=== PATIENT | female | born 1995 | race Caucasian/White ===

== ENCOUNTER 2019-01-09 17:10 | Emergency (ER) | payer OTHER, BC ==
[~2019-01-09] VITALS: Ht 175 cm; Wt 144.6 kg
--- NOTE | 2019-01-09 17:55 | NUR ---
TO ROOM NO CHANGE FROM TRIAGE.
[2019-01-09] MEDS ORDERED: FAMOTIDINE 20 MG (PEPCID) TABLET PO STA (18:04)
[2019-01-09] MEDS ORDERED: LACTATED RINGERS 1,000 ML IV ONE (18:04)
--- NOTE | 2019-01-09 18:14 | ED Abdominal Pain ---
General Chief Complaint: Abdominal/GI Problems Stated Complaint: CONSTIPATION,VOMITING, FEVER Nursing Triage Note: DAVON STATES THAT SHE HAS BEEN BEEN CONSTIPATED SINCE . SHE IS 14 WEEKS . SHE HAS ALSO BEEN HAVING NAUSEA AND VOMITING AND FEVER OF 101.5. Sepsis Screen: No Definite Risk Source of Information: Patient, Other (BF) Exam Limitations: No Limitations History of Present Illness Date Seen by Provider: Jan 09, 2019 Time Seen by Provider: 17:55 Initial Comments Patient presents ER by private conveyance from Dr. Hayes office with chief complaint she has not had a bowel movement since , approximate 6 days ago. For the past 3-4 days she's been having nausea with vomiting and yesterday she started expressing fever with a MAXIMUM TEMPERATURE of 101.5. She went to her OB provider Dr. Arvizu and was given three quarters of a liter fluid and Zofran before being sent to the ER for further evaluation. She has no history of abdominal trauma, surgery or other medical problems besides hypertension for which she is usually on lisinopril but she was switched to the labetalol for the . She is a G1 at 14 weeks 2 days. The Zofran did help . She has no other medical allergies. She quit smoking about a month ago and does not use alcohol or recreational drugs. She's having no dysuria or blood in the vomitus. She has some upper abdominal pain associated with the vomiting. She has not tried anything for the pain. Allergies and Home Medications Allergies Coded Allergies: No Known Drug Allergies (Unverified , 01/09/19) Patient Home Medication List Home Medication List Reviewed: Yes Review of Systems Review of Systems Constitutional: No chills, No diaphoresis EENTM: No Blurred Vision, No Double Vision Respiratory: Denies Cough, Denies Shortness of Air Cardiovascular: Denies Chest Pain, Denies Edema Gastrointestinal: Denies Abdomen Distended; Abdominal Pain, Constipated; Denies Diarrhea; Nausea, Poor Appetite, Poor Fluid Intake, Vomiting Genitourinary: Denies Burning, Denies Discharge Musculoskeletal: No back pain, No joint pain Skin: No pruritus, No rash Psychiatric/Neurological: Denies Headache, Denies Numbness Past Xrejdlj-Sknytg-Vecpfv Hx Patient Social History Alcohol Use: Denies Use Recreational Drug Use: No Smoking Status: Former Smoker 2nd Hand Smoke Exposure: Yes Recent Foreign Travel: No Contact w/Someone Who Travel: No Recent Infectious Disease Expo: No Recent Hopitalizations: No Seasonal Allergies Seasonal Allergies: No Past Medical History Surgeries: No Respiratory: No Cardiac: Yes Hypertension Genitourinary: No Gastrointestinal: No Musculoskeletal: No Endocrine: No HEENT: No Cancer: No Psychosocial: No Integumentary: No Blood Disorders: No Physical Exam Vital Signs Vital Signs - First Documented 01/09/19 17:22 Temp 36.7 Pulse 95 Resp 16 B/P (MAP) 139/83 (101) Pulse Ox 99 Capillary Refill : Less Than 3 Seconds Height/Weight/BMI Height: '" Weight: lbs. oz. kg; 47.00 BMI Method: General Appearance: WD/WN, no apparent distress HEENT: PERRL/EOMI, normal ENT inspection, TMs normal, pharynx normal Neck: full range of motion, normal inspection Respiratory: lungs clear, normal breath sounds, no respiratory distress, no accessory muscle use Cardiovascular: normal peripheral pulses, regular rate, rhythm Gastrointestinal: normal bowel sounds, non tender, soft Extremities: normal range of motion, normal inspection, normal capillary refill Neurologic/Psychiatric: alert, normal mood/affect, oriented x 3 Skin: normal color, warm/dry Progress/Results/Core Measures Results/Orders Lab Results Laboratory Tests Test 01/09/19 18:40 Range/Units White Blood Count 8.9 4.3-11.0 10^3/uL Red Blood Count 4.14 L 4.35-5.85 10^6/uL Hemoglobin 11.4 L 11.5-16.0 G/DL Hematocrit 34 L 35-52 % Mean Corpuscular Volume 81 80-99 FL Mean Corpuscular Hemoglobin 28 25-34 PG Mean Corpuscular Hemoglobin Concent 34 32-36 G/DL Red Cell Distribution Width 13.9 10.0-14.5 % Platelet Count 275 130-400 10^3/uL Mean Platelet Volume 10.9 H 7.4-10.4 FL Neutrophils (%) (Auto) 70 42-75 % Lymphocytes (%) (Auto) 23 12-44 % Monocytes (%) (Auto) 7 0-12 % Eosinophils (%) (Auto) 0 0-10 % Basophils (%) (Auto) 0 0-10 % Neutrophils # (Auto) 6.2 1.8-7.8 X 10^3 Lymphocytes # (Auto) 2.0 1.0-4.0 X 10^3 Monocytes # (Auto) 0.7 0.0-1.0 X 10^3 Eosinophils # (Auto) 0.0 0.0-0.3 10^3/uL Basophils # (Auto) 0.0 0.0-0.1 10^3/uL Sodium Level 136 135-145 MMOL/L Potassium Level 3.8 3.6-5.0 MMOL/L Chloride Level 106 98-107 MMOL/L Carbon Dioxide Level 18 L 21-32 MMOL/L Anion Gap 12 5-14 MMOL/L Blood Urea Nitrogen 4 L 7-18 MG/DL Creatinine 0.64 0.60-1.30 MG/DL Estimat Glomerular Filtration Rate > 60 BUN/Creatinine Ratio 6 Glucose Level 86 70-105 MG/DL Calcium Level 9.2 8.5-10.1 MG/DL Corrected Calcium 9.4 8.5-10.1 MG/DL Magnesium Level 1.9 1.6-2.4 MG/DL Total Bilirubin 0.3 0.1-1.0 MG/DL Aspartate Amino Transf (AST/SGOT) 19 5-34 U/L Alanine Aminotransferase (ALT/SGPT) 18 0-55 U/L Alkaline Phosphatase 56 40-136 U/L Total Protein 6.9 6.4-8.2 GM/DL Albumin 3.7 3.2-4.5 GM/DL Lipase 10 8-78 U/L My Orders Orders - DAMIAN ZELAYA Ed Iv/Invasive Line Start (01/09/19 18:04) Lactated Ringers (Lr 1000 Ml Iv Solution (01/09/19 18:04) Promethazine Injection (Phenergan Injec (01/09/19 18:15) Cbc With Automated Diff (01/09/19 18:04) Comprehensive Metabolic Panel (01/09/19 18:04) Lipase (01/09/19 18:04) Magnesium (01/09/19 18:04) Lidocaine 2% Viscous 15 Ml (Xylocaine Vi (01/09/19 18:15) Famotidine Tablet (Pepcid Tablet) (01/09/19 18:04) Antacid Suspension (Mylanta Suspension (01/09/19 18:15) Medications Given in ED Current Medications Medications Dose Ordered Sig/Salena Route Start Time Stop Time Status Last Admin Dose Admin Al Hydrox/Mg Hydrox/Simethicone 30 ml ONCE ONCE PO 01/09/19 18:15 01/09/19 18:16 DC 01/09/19 18:36 30 ML Lactated Ringer's 1,000 ml @ 0 mls/hr Q0M ONCE IV 01/09/19 18:04 01/09/19 18:06 DC 01/09/19 18:36 1,000 MLS/HR Lidocaine HCl 15 ml ONCE ONCE PO 01/09/19 18:15 01/09/19 18:16 DC 01/09/19 18:36 15 ML Promethazine HCl 25 mg ONCE ONCE IVP 01/09/19 18:15 01/09/19 18:16 DC 01/09/19 18:33 25 MG Vital Signs/I&O 01/09/19 17:22 Temp 36.7 Pulse 95 Resp 16 B/P (MAP) 139/83 (101) Pulse Ox 99 Blood Pressure Mean: 101 POS Progress Progress Note #1: Time: 18:14 Progress Note We'll start some IV fluids Phenergan a GI cocktail and labs looking for more serious trouble. She has a benign abdominal exam with good bowel sounds all 4 quadrants. Aseptic vital signs. Progress Note #2: Time: 19:21 Progress Note The GI cocktail did seem to make improvement in her pain to where she just barely feels a dull ache in her epigastric region. She still has a benign abdominal exam with aseptic vitals. Her labs are reassuring. She is about fpc through her fluid bolus which also contains or Phenergan. Her nausea is completely gone. Return to the Center home with some Zofran and instructions to clean out using MiraLAX and enemas. She already has MiraLAX from primary care. We'll also recommend some Pepcid for the next week. Departure Impression Primary Impression: Obstipation Additional Impression: Gastroenteritis Disposition: 01 HOME, SELF-CARE Condition: Stable Departure-Patient Inst. Decision time for Depature: 19:23 Referrals: DEENA ARVIZU MD (PCP/Family) Primary Care Physician Patient Instructions: Constipation, Adult (DC), [id number] Add. Discharge Instructions: Use the Zofran 1 tablet under the tongue every 6 hours as needed for nausea. Encourage lots of fluids. MiraLAX 1-4 times a day until you have results. Combine this with either a suppository or enema daily. Tylenol 1000 mg every 8 hours as needed for pain. Pepcid one capsule twice daily for the next week for stomach discomfort. Follow-up with the inspector canvas products as necessary. If you begin to have fevers, shortness of breath, intractable abdominal pain then please return to the nearest ER. All discharge instructions reviewed with patient and/or family. Voiced understanding. Scripts Ondansetron (Ondansetron Odt) 4 Mg Tab.rapdis 4 MG PO Q6H PRN for NAUSEA/VOMITING, #15 TAB 0 Refills Prov: DAMIAN ZELAYA 01/09/19 Famotidine (Pepcid) 20 Mg Tablet 20 MG PO BID for 7 Days, #14 TAB 0 Refills Prov: DAMIAN ZELAYA 01/09/19 Work/School Note: Work Release Form Date Seen in the Emergency Department: Jan 09, 2019 Return to Work: Jan 12, 2019 Restrictions: No Restrictions DAMIAN ZELAYA Jan 09, 2019 18:14 POS
[2019-01-09] MEDS ORDERED: PROMETHAZINE INJ 25 MG/ML (PHENERGAN) AMP IVP ONE (18:15)
[2019-01-09] MEDS ORDERED: ANTACID SUSP 30 ML UDC (MYLANTA) PO ONE (18:15)
[2019-01-09] MEDS ORDERED: LIDOCAINE 2% VISCOUS 15 ML UDC PO ONE (18:15)
[2019-01-09 18:47] LABS: BASOPHILS % (AUTO) 0 % (0-10); EOSINOPHILS % (AUTO) 0 % (0-10); HEMATOCRIT 34 % (35-52); HEMOGLOBIN 11.4 G/DL (11.5-16.0); LYMPHOCYTES % (AUTO) 23 % (12-44); MEAN CORPUSCULAR HEMOGLOBIN 28 PG (25-34); MEAN CORPUSCULAR HGB CONC 34 G/DL (32-36); MEAN CORPUSCULAR VOLUME 81 FL (80-99); MEAN PLATELET VOLUME 10.9 FL (7.4-10.4); MONOCYTES # (AUTO) 0.7 X 10^3 (0.0-1.0); MONOCYTES % (AUTO) 7 % (0-12); NEUTROPHILS # (AUTO) 6.2 X 10^3 (1.8-7.8); NEUTROPHILS % (AUTO) 70 % (42-75); PLATELET COUNT 275 10^3/uL (130-400); RED CELL DISTRIBUTION WIDTH 13.9 % (10.0-14.5); WHITE BLOOD COUNT 8.9 10^3/uL (4.3-11.0)
[2019-01-09 19:08] LABS: ALANINE AMINOTRANSFERASE 18 U/L (0-55); ALBUMIN 3.7 GM/DL (3.2-4.5); ALKALINE PHOSPHATASE 56 U/L (40-136); BILIRUBIN,TOTAL 0.3 MG/DL (0.1-1.0); BUN/CREATININE RATIO 6; CALCIUM 9.2 MG/DL (8.5-10.1); CARBON DIOXIDE 18 MMOL/L (21-32); CHLORIDE 106 MMOL/L (98-107); CREATININE SERUM 0.64 MG/DL (0.60-1.30); GFR ESTIMATED > 60; GLUCOSE 86 MG/DL (70-105); LIPASE 10 U/L (8-78); MAGNESIUM 1.9 MG/DL (1.6-2.4); POTASSIUM 3.8 MMOL/L (3.6-5.0); SODIUM 136 MMOL/L (135-145); TOTAL PROTEIN 6.9 GM/DL (6.4-8.2)
[2019-01-09] MEDS ORDERED: ONDA4TAB11 PO (19:25)
[2019-01-09] MEDS ORDERED: FAMO-119 PO (19:25)
[2019-01-09 19:33] VITALS: BP 139/83
--- OUTSIDE RECORDS SUMMARY | 2019-02-04 15:59 | XMS REPORT ---
Author Author Debby SLOAN [facility] Address [address] [place] [address] Care Team Providers Care Life Coach Name Role Phone GERTRUDIS SLOAN Unavailable PROBLEMS Type Condition ICD9-CM Code [id number] Code Onset Dates Condition S tatus SNOMED Code Problem Pure hypercholesterolemia E78.00 Acti ve 171798604 Problem Hyperinsulinemia E16.1 Active 834 06565 Problem Depressive disorder F32.9 Active 49473650 Problem Dysthymia F34.1 Active 12095244 ALLERGIES No Known Allergies ENCOUNTERS Encounter Location Date Diagnosis [place] [address] [phone] Jul, Hyperinsulinemia E16.1 and P ure hypercholesterolemia E78.00 [facility] [address] [phone] June, Encounter for immunization Z 23 [place] [address] [phone] 24 Jun, 2018 [facility] [address] [place] [id number] [place] [id number] 28 Apr, 2018 Caries K02.9 ; Periodontitis K05.30 and Dental examination Z01.20 [facility] [address] [phone] Apr, Hyperinsulinemia E16.1 and P ure hypercholesterolemia E78.00 [place] [address] [address] Apr, Hirsutism L68.0 [place] [address] [address] Apr, Morbid obesity E66.01 ; Dyst hymia F34.1 ; Pre-conception counseling Z31.69 ; Weight loss counseling, encounter for Z71.3 and Hirsutism L68.0 [facility] [address] [facility] [id number] [address] [place] [phone] 20 Mar, 2018 [facility] [address] [id number] [address] [place] [id number] 15 Mar, 2018 Dental examination Z01.20 an d Caries K02.9 [facility] [address] [id number] [address] [place] [phone] 14 Mar, 2018 Dental abscess K04.7 [place] [address] [facility] [id number] [address] [place] [phone] 14 Mar, 2018 Dental examination Z01.20 [place] [address] [facility] [id number] [address] [place] [phone] 18 Feb, 2018 [facility] [address] [facility] [id number] [address] [place] [phone] Nov, Viral upper respiratory trac t infection J06.9 and BMI 40.0-44.9, adult Z68.41 [facility] [address] [facility] [id number] [address] [place] [phone] 18 Nov, 2017 [place] [id number] [facility] [id number] [address] [place] [phone] Oct, Encounter for immunization Z 23 IMMUNIZATIONS No Known Immunizations SOCIAL HISTORY Never Assessed REASON FOR VISIT est care, would like to discuss weight loss medication - ISABEL Pyle PLAN OF CARE Activity Details Follow Up 4 Weeks Reason:wt check VITAL SIGNS Height 70 in 2018-04-16 Weight 320.4 lbs 2018-04-16 Temperature 98.1 degrees Fahrenheit 2018-04-16 Heart Rate 98 bpm 2018-04-16 Respiratory Rate 18 2018-04-16 Oximetry 100 % 2018-04-16 BMI 45.97 kg/m2 2018-04-16 Blood pressure systolic 142 mmHg 2018-04-16 Blood pressure diastolic 78 mmHg 2018-04-16 MEDICATIONS Medication Instructions Dosage Frequency Start Date End Date Duration S funmi Sertraline HCl 50 mg Orally Once a day 1 tablet 24h Apr, 30 day(s) Active Phentermine HCl 37.5 mg Orally Once a day 1 tablet 24h Apr, 28 days Active RESULTS No Results PROCEDURES Procedure Date Ordered Result Body Site COMPLETE CBC W/AUTO DIFF WBC April 16, 2018 VENIPUNCT, ROUTINE* April 16, 2018 LIPID PANEL April 16, 2018 COMPREHEN METABOLIC PANEL April 16, 2018 ASSAY OF INSULIN April 16, 2018 GONADOTROPIN (LH) April 16, 2018 GONADOTROPIN (FSH) April 16, 2018 ASSAY OF ESTRADIOL April 16, 2018 ASSAY OF FREE THYROXINE April 16, 2018 ASSAY THYROID STIM HORMONE April 16, 2018 INSTRUCTIONS MEDICATIONS ADMINISTERED No Known Medications MEDICAL (GENERAL) HISTORY Type Description Date Medical History Herpes zoster without complication Surgical History tubes in ears as a child Surgical History adenoids removed Hospitalization History Pneumonia 2003
--- OUTSIDE RECORDS SUMMARY | 2019-02-04 15:59 | XMS REPORT | Continuity of Care Document ---
Author Organization Unknown Address Unknown Phone Unavailable Allergies Active Description Code Type Severity Reaction Onset Reported/Identified Relationship to Patient Clinical Status Yes No Known Drug Allergies [id number] Drug Allergy Unknown N/A 01/09/2019 Medications There is no data. Problems Date Dx Coded Attending Type Code Diagnosis Diagnosed By 01/14/2019 DAMIAN ZELAYA MD Ot K52. 9 NONINFECTIVE GASTROENTERITIS AND COLITIS 01/14/2019 DAMIAN ZELAYA MD Ot K59. 00 CONSTIPATION, UNSPECIFIED 01/14/2019 DAMIAN ZELAYA MD Ot O16. 1 UNSPECIFIED MATERNAL HYPERTENSION, FIRST 01/14/2019 DAMIAN ZELAYA MD Ot O99.612 DISEASES OF THE DGSTV SYS COMP 01/14/2019 DAMIAN ZELAYA MD Ot R50. 9 FEVER, UNSPECIFIED 01/14/2019 DAMIAN ZELAYA MD Ot Z3A. 14 14 WEEKS GESTATION OF 01/14/2019 DAMIAN ZELAYA MD Ot Z77. 22 CNTCT W AND EXPSR TO ENVIRON TOBACCO SMO 01/14/2019 DAMIAN ZELAYA MD Ot Z87.891 PERSONAL HISTORY OF NICOTINE DEPENDENCE Procedures There is no data. Results Test Result Range ESTRADIOL - 04/16/18 09:24 ESTRADIOL 81 pg/mL NRG FSH, SERUM - 04/16/18 09:24 FSH 4.4 mIU/mL NRG LH - 04/16/18 09:24 LH 5.1 mIU/mL NRG INSULIN LEVEL - 04/16/18 09:24 INSULIN 24.0 uIU/mL 2.0-19.6 TESTOSTERONE, TOTAL (WOMEN, CHILDREN, HY POGONADAL MALES) - 04/25/18 10:45 TESTOSTERONE, TOTAL, LC/MS/MS 15 ng/dL 2-45 FREE TESTOSTERONE 2.6 pg/mL 0.1-6.4 LIPID PANEL - 07/25/18 09:05 CHOLESTEROL, TOTAL 200 mg/dL <200 HDL CHOLESTEROL 38 mg/dL >50 TRIGLYCERIDES 124 mg/dL <150 LDL-CHOLESTEROL 137 mg/dL (calc) NRG CHOL/HDLC RATIO 5.3 (calc) <5.0 NON HDL CHOLESTEROL 162 mg/dL (calc) <13 0 INSULIN LEVEL - 07/25/18 09:07 INSULIN 15.3 uIU/mL 2.0-19.6 TSH w/ FREE T4 - 11/02/18 08:24 TSH 2.06 mIU/L NRG T4, FREE 1.3 ng/dL 0.8-1.8 CMP - 11/02/18 08:24 GLUCOSE 99 mg/dL 65-99 UREA NITROGEN (BUN) 9 mg/dL 7-25 CREATININE 0.72 mg/dL 0.50-1.10 eGFR NON-AFR. ST LU[facility] 119 mL/min/1.73m2 > OR = 60 eGFR 138 mL/min/1.73m2 > OR = 60 BUN/CREATININE RATIO NOT APPLICABLE (calc) 6-22 SODIUM 136 mmol/L 135-146 POTASSIUM 4.5 mmol/L 3.5-5.3 CHLORIDE 104 mmol/L 98-110 CARBON DIOXIDE 24 mmol/L 20-32 CALCIUM 9.1 mg/dL 8.6-10.2 PROTEIN, TOTAL 6.9 g/dL 6.1-8.1 ALBUMIN 4.0 g/dL 3.6-5.1 GLOBULIN 2.9 g/dL (calc) 1.9-3.7 ALBUMIN/GLOBULIN RATIO 1.4 (calc) 1.0-2. 5 BILIRUBIN, TOTAL 0.3 mg/dL 0.2-1.2 ALKALINE PHOSPHATASE 62 U/L 33-115 AST 14 U/L 10-30 ALT 13 U/L 6-29 INSULIN LEVEL - 11/02/18 08:24 INSULIN 20.8 uIU/mL 2.0-19.6 ANTIBODY SCREEN - 11/14/18 14:40 ANTIBODY SCREEN, RBC W/REFL ID, TITER AND AG NO ANTIBODIES DETECTED NRG TSH - 11/14/18 14:40 TSH 1.81 mIU/L NRG RUBELLA IMMUNE STATUS - 11/14/18 14:40 RUBELLA ANTIBODY (IGG) 1.41 index NRG CULTURE, URINE - 11/14/18 14:40 CULTURE, URINE, ROUTINE SEE NOTE NRG SUREPATH PAP AND HPV mRNA E6/E7 - 14:40 CLINICAL INFORMATION: NRG LMP: NRG PREV. PAP: NRG PREV. BX: CX NRG SOURCE: Cervix NRG STATEMENT OF ADEQUACY: NRG INTERPRETATION/RESULT: NRG SENIOR WEB DEVELOPER: NRG HPV mRNA E6/E7, SUREPATH VIAL Not Detected NOT DETECTED REVIEW SENIOR WEB DEVELOPER: NRG COMMENT NRG URINE PROTEIN 24 HOUR - 11/20/18 08:20 PROTEIN, TOTAL, 24 HR UR 156 mg/24 h <15 0 QNATAL - 12/10/18 10:27 NUMBER OF FETUSES? 1 NRG ADVANCED MATERNAL AGE? NO NRG ABNORMAL ERENDIRA? NO NRG ABNORMAL US? NO NRG PERSONAL/FAM HISTORY? NO NRG INTERPRETATION TNP NRG Complete blood count (CBC) with automate d white blood cell (WBC) differential - 01/09/19 18:40 Blood leukocytes automated count (number/volume) 8.9 10*3/uL 4.3-11.0 Blood erythrocytes automated count (number/volume) 4.14 10*6/uL 4.35-5.85 Venous blood hemoglobin measurement (mass/volume) 11.4 g/dL 11.5-16.0 Blood hematocrit (volume fraction) 34 % 35-52 Automated erythrocyte mean corpuscular volume 81 [ foz_us] 80-99 Automated erythrocyte mean corpuscular h emoglobin (mass per erythrocyte) 28 pg 25-34 Automated erythrocyte mean corpuscular h emoglobin concentration measurement (mass/volume) 34 g/dL 32-36 Automated erythrocyte distribution width ratio 13. 9 % 10.0- 14.5 Automated blood platelet count (count/volume) 275 10*3/uL 130-400 Automated blood platelet mean volume measurement 10.9 [foz_us] 7.4-10.4 Automated blood neutrophils/100 leukocytes 70 % 42-75 Automated blood lymphocytes/100 leukocytes 23 % 12-44 Blood monocytes/100 leukocytes 7 % 0-12 Automated blood eosinophils/100 leukocytes 0 % 0-10 Automated blood basophils/100 leukocytes 0 % 0-10 Blood neutrophils automated count (number/volume) 6.2 10*3 1.8-7.8 Blood lymphocytes automated count (number/volume) 2.0 10*3 1.0-4.0 Blood monocytes automated count (number/volume) 0. 7 10*3 0.0-1.0 Automated eosinophil count 0.0 10*3/uL 0 .0-0.3 Automated blood basophil count (count/volume) 0.0 10*3/uL 0.0-0.1 Comprehensive metabolic panel - 01/09/19 18:40 Serum or plasma sodium measurement (moles/volume) 136 mmol/L 135-145 Serum or plasma potassium measurement (moles/volume) 3.8 mmol/L 3.6-5.0 Serum or plasma chloride measurement (moles/volume) 106 mmol/L 98-107 Carbon dioxide 18 mmol/L 21-32 Serum or plasma anion gap determination (moles/volume) 12 mmol/L 5-14 Serum or plasma urea nitrogen measurement (mass/volume ) 4 mg/dL 7-18 Serum or plasma creatinine measurement (mass/volume) 0.64 mg/dL 0.60-1.30 Serum or plasma urea nitrogen/creatinine mass ratio 6 NRG Serum or plasma creatinine measurement w ith calculation of estimated glomerular filtration rate > NRG Serum or plasma glucose measurement (mass/volume) 86 mg/dL 70-105 Serum or plasma calcium measurement (mass/volume) 9.2 mg/dL 8.5-10.1 Serum or plasma total bilirubin measurement (mass/volu me) 0.3 mg/dL 0.1-1.0 Serum or plasma alkaline phosphatase brinda surement (enzymatic activity/volume) 56 U/L 40-136 Serum or plasma aspartate aminotransfera se measurement (enzymatic activity/volume) 19 U/L 5-34 Serum or plasma alanine aminotransferase measurement (enzymatic activity/volume) 18 U/L 0-55 Serum or plasma protein measurement (mass/volume) 6.9 g/dL 6.4-8.2 Serum or plasma albumin measurement (mass/volume) 3.7 g/dL 3.2-4.5 CALCIUM CORRECTED 9.4 mg/dL 8.5-10.1 Magnesium - 01/09/19 18:40 Magnesium 1.9 mg/dL 1.6-2.4 Lipase - 01/09/19 18:40 Lipase 10 U/L 8-78 PENTA SCREEN - 01/22/19 15:12 Maternal Weight 319 lbs NRG Est'd Date of Delivery 07/08/2019 NRG SHAMEKA Determined by ULTRASOUND NRG Mother's Ethnic Origin NRG Number of Fetuses 1 NRG Insulin Depend Diabetic NO NRG Repeat Specimen NO NRG Hx Of Neural Tube Defects NO NRG Prev Down Synd NO NRG Donor Egg NO NRG Donor Age: Egg Retrieval NOT GIVEN NRG Cigarette smoker NOT GIVEN NRG INTERPRETATION: SEE NOTE NRG Risk for ONTD <1:5000 NRG Age Risk Down Syndrome 1:1133 NRG ERENDIRA Down Syndrome Risk <1:5000 <1:270 ERENDIRA Trisomy 18 Risk <1:5000 <1:100 Calc'd Gestational Age 16.1 NRG AFP, Serum 25.8 ng/mL NRG AFP MoM 1.14 NRG hCG, Serum 11.4 IU/mL NRG hCG MoM 0.47 NRG Estriol, Free 0.67 ng/mL NRG Estriol MoM 1.04 NRG Inhibin A, Dimeric 87 pg/mL NRG Inhibin A MoM 0.67 NRG h-hCG, Serum 7.5 mcg/L NRG h-hCG MoM 0.37 NRG Date of 1995 NRG Collection Date 01/22/2019 NRG Encounters ACCT No. Visit Date/Time Discharge Status Pt. Type Provider Facility Loc./Unit Complaint [id number] 01/22/2019 13:20:00 01/22/2019 23:59: 59 CLS Outpatient GERTRUDIS SLOAN [facility] [id number] 01/22/2019 13:20:00 Document Registration [id number] 12/10/2018 09:00:00 Document Registration [id number] 11/20/2018 08:20:00 Document Registration [id number] 11/14/2018 13:20:00 Document Registration [id number] 11/02/2018 09:20:00 Document Registration [id number] 07/25/2018 09:00:00 Document Registration [id number] 04/25/2018 10:40:00 Document Registration [id number] 04/16/2018 08:20:00 Document Registration [id number] 01/09/2019 17:13:00 19:34:00 DIS Outpatient NATHALIE BAH, DAMIAN Rodriguez [facility] ER CONSTIPATION,VOMITING, FEVER
--- OUTSIDE RECORDS SUMMARY | 2019-02-04 15:59 | XMS REPORT ---
Author Author Debby SLOAN Organization [facility] Address [address] [place] [address] Care Team Providers Care Shoe Repairer Helper Name Role Phone GERTRUDIS SLOAN Unavailable PROBLEMS Unknown Problems ALLERGIES No Known Allergies ENCOUNTERS Encounter Location Date Diagnosis [facility] [address] [place] [id number] [address] [place] [phone] Nov, Viral upper respiratory trac t infection J06.9 and BMI 40.0-44.9, adult Z68.41 [facility] [address] [facility] [id number] [address] [place] [phone] Nov, [facility] [address] [facility] [id number] [address] [place] [phone] Oct, Encounter for immunization Z 23 IMMUNIZATIONS No Known Immunizations SOCIAL HISTORY Never Assessed REASON FOR VISIT Cold symptoms- Cough, congestion, cold sore on mouth, slight fever yesterday- Ulysses Diaz RN PLAN OF CARE Activity Details Follow Up as needed or reg fu with pc p Reason: VITAL SIGNS Height 70 in 2017-11-23 Weight 304.2 lbs 2017-11-23 Temperature 98.7 degrees Fahrenheit 2017-11-23 Heart Rate 82 bpm 2017-11-23 Respiratory Rate 22 2017-11-23 BMI 43.64 kg/m2 2017-11-23 Blood pressure systolic 128 mmHg 2017-11-23 Blood pressure diastolic 74 mmHg 2017-11-23 MEDICATIONS Medication Instructions Dosage Frequency Start Date End Date Duration S tatus Acyclovir 800 MG Orally Three times a day 1 tablet 8h Nov, 2 days Active Pseudoephedrine HCl ER 120 MG Orally every 12 hrs 1 tablet as neede d 12h Nov, 10 days Active Benzonatate 200 mg Orally Three times a day 1 capsule 8h Nov, Nov, 7 days Active RESULTS No Results PROCEDURES No Known procedures INSTRUCTIONS MEDICATIONS ADMINISTERED No Known Medications MEDICAL (GENERAL) HISTORY Type Description Date Medical History Herpes zoster without complication Surgical History No Surgical history information Hospitalization History Pneumonia 2003
== END 2019-01-09 19:34 | disposition home or self-care (01) ==
LOC: EDUNIT# 17:10 → ER 17:13
DX: O99.612 Diseases of the digestive system complicating pregnancy, second trimester (principal); K52.9 Noninfective gastroenteritis and colitis, unspecified; K59.00 Constipation, unspecified; O16.1 Unspecified maternal hypertension, first trimester; Z3A.14 14 weeks gestation of pregnancy; Z77.22 Contact with and (suspected) exposure to environmental tobacco smoke (acute) (chronic); Z87.891 Personal history of nicotine dependence
CPT/HCPCS: 36415; 80053; 83690; 83735; 85025; 96361; 96374

== ENCOUNTER 2019-05-17 10:30 | Outpatient (CLI) | payer OTHER, BC ==
[~2019-05-17] VITALS: Ht 175 cm; Wt 151.0 kg
[~2019-05-17 10:30] MED LIST: FAMO-119 PO; ONDA4TAB11 PO
--- NOTE | 2019-05-17 10:35 | NUR ---
LINDA BENAVIDES presented to unit via ambulatory from ED, with c/o HIGH BLOOD PRESSURE- sent from Dr Mcgraw's office. LINDA BENAVIDES weighed, gowned, voided, and to bed. EFHM and TOCO applied, VS taken. LINDA BENAVIDES oriented to bed controls, call light, TV, heat, and A/C controls.
[2019-05-17 11:00] VITALS: BP 138/65
[2019-05-17 11:15] LABS: HEMOGLOBIN 10.5 G/DL (11.5-16.0); MEAN PLATELET VOLUME 11.1 FL (7.4-10.4); RED CELL DISTRIBUTION WIDTH 14.1 % (10.0-14.5); WHITE BLOOD COUNT 13.9 10^3/uL (4.3-11.0)
[2019-05-17 11:19] LABS: ALBUMIN 3.4 GM/DL (3.2-4.5); CHLORIDE 106 MMOL/L (98-107); POTASSIUM 4.2 MMOL/L (3.6-5.0); SODIUM 135 MMOL/L (135-145)
[2019-05-17 11:20] LABS: CALCIUM 9.1 MG/DL (8.5-10.1)
[2019-05-17 11:22] LABS: GLUCOSE 88 MG/DL (70-105); TOTAL PROTEIN 6.7 GM/DL (6.4-8.2)
[2019-05-17 11:23] LABS: BILIRUBIN,TOTAL 0.1 MG/DL (0.1-1.0); CARBON DIOXIDE 18 MMOL/L (21-32)
[2019-05-17 11:25] LABS: ALKALINE PHOSPHATASE 79 U/L (40-136); CREATININE SERUM 0.66 MG/DL (0.60-1.30); GFR ESTIMATED > 60
[2019-05-17 11:26] LABS: BUN/CREATININE RATIO 11
[2019-05-17 11:28] LABS: ALANINE AMINOTRANSFERASE 7 U/L (0-55); URIC ACID 4.5 MG/DL (2.6-7.2)
--- NOTE | 2019-05-17 11:40 | NUR ---
This RN calls Dr Mcgraw with pt report. current BP, denies PreE s/s, lab results reported. Pt may eat lunch, BP hourly.
[2019-05-17 11:50] VITALS: BP 132/64
[2019-05-17 12:55] VITALS: BP 141/65
--- NOTE | 2019-05-17 13:04 | NUR ---
This RN gives update on pt report to Dr Mcgraw at this time. BPs read to Dr Mcgraw. Pt reports no s/s of Pre-E at this time. Dr Mcgraw says pt may DC to home now; wants pt to follow up on monday in clinic for BP check.
--- NOTE | 2019-05-20 08:36 | Physician Query-Final Dx ---
PAYTON JUAREZ 05/20/19 0836: Clinic Account Progress/Dx Physician Query: Please give diagnosis Please include # weeks gestation Date of Service May 17, 2019 at 10:30 DEENA ARVIZU MD 05/20/198: Clinic Account Progress/Dx DIAGNOSIS: Diagnosis Chronic hypertension with acute elevation and edema, negative labwork for preeclampsia, BP improved during observation period. 32 weeks gestation PAYTON JUAREZ May 20, 2019 08:36 DEENA ARVIZU MD May 20, 2019 20:48
== END 2019-05-17 13:23 | disposition home or self-care (01) ==
LOC: WSo 10:30 → LDRP 10:35 → WSo 13:23
PROVIDERS: ATTEND Family Medicine
DX: O16.3 Unspecified maternal hypertension, third trimester (principal); O12.03 Gestational edema, third trimester; Z3A.32 32 weeks gestation of pregnancy
CPT/HCPCS: 36415; 80053; 82570; 83615; 84156; 84550; 85027; 99213

== ENCOUNTER 2019-05-28 08:39 | Outpatient (CLI) | payer OTHER, BC ==
[2019-05-28] VITALS (9 sets, daily range): BP systolic 125–142; BP diastolic 58–68
[~2019-05-28] VITALS: Ht 175 cm; Wt 151.9 kg
--- NOTE | 2019-05-28 08:55 | NUR ---
LINDA BENAVIDES presented to unit via personal vehicle/amulatory from Dr Mcgraw's office, with c/o HIGH BP. LINDA BENAVIDES weighed, gowned, voided, and to bed. EFHM and TOCO applied, VS taken. LINDA BENAVIDES oriented to bed controls, call light, TV, heat, and A/C controls all by Krystin MENDENHALL.
[2019-05-28] MEDS ORDERED: BETAMETHASONE ACE/NA PHOS 6 MG/ML (CELESTONE SOLUSPAN) IM SCH (09:00)
[2019-05-28] MEDS ORDERED: LABETALOL HCL 20 MG/4 ML VIAL IV PRN (09:00)
[2019-05-28 09:30] LABS: BASOPHILS % (AUTO) 0 % (0-10); EOSINOPHILS # (AUTO) 0.1 10^3/uL (0.0-0.3); EOSINOPHILS % (AUTO) 1 % (0-10); HEMATOCRIT 31 % (35-52); HEMOGLOBIN 10.5 G/DL (11.5-16.0); LYMPHOCYTES # (AUTO) 1.9 X 10^3 (1.0-4.0); LYMPHOCYTES % (AUTO) 16 % (12-44); MEAN CORPUSCULAR HEMOGLOBIN 28 PG (25-34); MEAN CORPUSCULAR HGB CONC 33 G/DL (32-36); MEAN CORPUSCULAR VOLUME 82 FL (80-99); MEAN PLATELET VOLUME 11.1 FL (7.4-10.4); MONOCYTES # (AUTO) 0.6 X 10^3 (0.0-1.0); MONOCYTES % (AUTO) 5 % (0-12); NEUTROPHILS # (AUTO) 9.5 X 10^3 (1.8-7.8); NEUTROPHILS % (AUTO) 79 % (42-75); PLATELET COUNT 284 10^3/uL (130-400); RED CELL DISTRIBUTION WIDTH 14.6 % (10.0-14.5)
[2019-05-28 09:45] LABS: ALBUMIN 3.2 GM/DL (3.2-4.5); CHLORIDE 106 MMOL/L (98-107); POTASSIUM 4.1 MMOL/L (3.6-5.0); SODIUM 136 MMOL/L (135-145)
[2019-05-28 09:47] LABS: GLUCOSE 103 MG/DL (70-105); TOTAL PROTEIN 6.7 GM/DL (6.4-8.2)
[2019-05-28 09:49] LABS: BILIRUBIN,TOTAL 0.2 MG/DL (0.1-1.0); CARBON DIOXIDE 17 MMOL/L (21-32)
[2019-05-28 09:51] LABS: ALKALINE PHOSPHATASE 78 U/L (40-136); CREATININE SERUM 0.67 MG/DL (0.60-1.30); GFR ESTIMATED > 60
[2019-05-28 09:52] LABS: BUN/CREATININE RATIO 9
[2019-05-28 09:54] LABS: ALANINE AMINOTRANSFERASE 9 U/L (0-55); URIC ACID 5.1 MG/DL (2.6-7.2)
--- NOTE | 2019-05-28 10:00 | NUR ---
this RN receives report from Krystin MENDENHALL
--- NOTE | 2019-05-28 10:49 | Diagnostic Imaging Report ---
INDICATION: Maternal hypertension. TECHNIQUE: Multiple real-time grayscale images were obtained over the gravid uterus. COMPARISON: None FINDINGS: Limited imaging of the gravid uterus was performed. Biophysical profile was also performed and there is a score of 8/8 as the fetus was given a score of 2 for breathing movements, motion, tone and amniotic fluid. Fetus is in cephalic presentation. KANU measures 12.1 cm. Placenta is anterior in position without previa. Biometrical measurements are as follows: Biparietal 9.28 cm, age 37 weeks 6 days. Head circumference 33.33 cm, age 38 weeks 1 days. Abdominal circumference 31.83 cm, age 35 weeks 6 days. Femur length 6.92 cm, age 35 weeks 4 days. Sonographic estimate age: 36 weeks 6 days. Sonographic estimated date of delivery: 06/19/2019. Estimated Weight: 2861 gm (+/- 418 gm). LMP percentile: 93%. heart rate: 135 beats per minute. number: 1 of 1. IMPRESSION: 1. Normal biophysical profile. 2. Cephalic presentation with estimated gestational age of 36 weeks and 6 days. Dictated by: Dictated on workstation # [id number]
--- NOTE | 2019-05-28 10:51 | Diagnostic Imaging Report ---
PROCEDURE: US Hepatic (Liver). TECHNIQUE: Multiple real-time grayscale images were obtained over the right upper quadrant in various projections. INDICATION: Right upper quadrant abdominal pain, hypertension. COMPARISON: None. FINDINGS: The size and echogenicity liver appears normal. There is no mass or intrahepatic biliary duct dilatation. Portal venous flow is normal. Common bile duct, pancreas, aorta and IVC are obscured by bowel gas. The right kidney is normal. Several gallstones are present. Otherwise, gallbladder wall and lumen are unremarkable. There is no inflammation. IMPRESSION: 1. Normal-appearing liver. 2. Cholelithiasis without cholecystitis 3. Limited examination due to overlying bowel gas. No obvious ascites. Dictated by: Dictated on workstation # [id number]
--- NOTE | 2019-05-28 10:56 | NUR ---
This RN calls Dr Mcgraw with pt report. current BP's, pt CO headache (pt states she always has a headache but now is worse than usual), epigastric pain. +1 edema in legs/feet, +1 reflexes, lab results read. Report from US tech to RN: BPP 09/13, gal stones present, slightly enlarged liver, measuring large for gestational age at 37 weeks [address] some change[address] Dr Mcgraw states labs look okay but wants to continue to watch pt a little longer just in case BPs spike again (were high in office), RN will call back about [address] Mcgraw is placing order for TUMS to help alleviate epigastric pain.
[2019-05-28] MEDS ORDERED: CALCIUM CARBONATE 500 MG (TUMS) TAB.CHEW PO ONE (11:00)
[2019-05-28] MEDS ORDERED: CALCIUM CARBONATE 500 MG (TUMS) TAB.CHEW ONE (11:02)
--- NOTE | 2019-05-28 13:01 | NUR ---
Dr Cueto called by this RN. Latest BPs from last 2 hours. Pt states tums helped her epigastric pain slightly. pt co headache rating 3. pt has not taken anything for headache today. dr cueto states pt may have 1000mg tylenol for headache. Lans and BPs look good-Pt may dc to home if she feels comfortable with that. Do not return to work for the remaining of the week. Dr Cueto wants to see her again in office at the end of this week.
[2019-05-28] MEDS ORDERED: ACETAMINOPHEN 500 MG TAB (TYLENOL) ONE (13:03)
[2019-05-28] MEDS ORDERED: ACETAMINOPHEN 500 MG TAB (TYLENOL) PO ONE (13:15)
--- NOTE | 2019-05-29 09:29 | Physician Query-Final Dx ---
PAYTON JUAREZ 05/29/19 0929: Clinic Account Progress/Dx Physician Query: Please give diagnosis Please include # weeks gestation Date of Service May 28, 2019 at 08:39 DEENA ARVIZU MD 05/29/19 1549: Clinic Account Progress/Dx DIAGNOSIS: Diagnosis Chronic hypertension complicating Headache 34 weeks gestation PAYTON JUAREZ May 29, 2019 09:29 DEENA ARVIZU MD May 29, 2019 15:49
== END 2019-05-28 13:15 | disposition home or self-care (01) ==
LOC: WSo 08:39 → LDRP 08:42 → WSo 13:15
PROVIDERS: ATTEND Family Medicine
DX: O16.9 Unspecified maternal hypertension, unspecified trimester (principal); Z3A.34 34 weeks gestation of pregnancy
CPT/HCPCS: 36415; 76705; 76805; 76819; 80053; 82570; 83615; 84156; 84550; 85025; 96372; 99213

== ENCOUNTER 2019-05-29 10:55 | Outpatient (CLI) | payer OTHER, BC ==
[~2019-05-29] VITALS: Ht 175 cm; Wt 151.3 kg
[2019-05-29 11:00] VITALS: BP 138/80
--- NOTE | 2019-05-29 11:00 | NUR ---
LINDA BENAVIDES presented to unit via ambulation from ED, for direct admit by Dr for elevated BP. Pt. weighed, gowned, voided, and to bed. EFHM and TOCO applied, VS taken. Pt. oriented to bed controls, call light, TV, heat, and A/C controls.
[2019-05-29 11:24] VITALS: BP 138/80
[2019-05-29] MEDS ORDERED: BETAMETHASONE ACE/NA PHOS 6 MG/ML (CELESTONE SOLUSPAN) IM SCH (11:45)
--- NOTE | 2019-05-29 11:50 | NUR ---
This RN calls Dr Mcgraw with pt report, current BP, pt CO headache not relieved by Tylenol, CO no other PreE SS. Orders received for labs and give second dose of betamethasone. RN will call Dr Mcgraw with updated pt report once labs are back.
[2019-05-29 12:00] VITALS: BP 122/65
[2019-05-29 12:14] LABS: BASOPHILS % (AUTO) 0 % (0-10); EOSINOPHILS % (AUTO) 0 % (0-10); HEMATOCRIT 31 % (35-52); HEMOGLOBIN 10.4 G/DL (11.5-16.0); LYMPHOCYTES % (AUTO) 19 % (12-44); MEAN CORPUSCULAR HEMOGLOBIN 27 PG (25-34); MEAN CORPUSCULAR HGB CONC 33 G/DL (32-36); MEAN CORPUSCULAR VOLUME 82 FL (80-99); MEAN PLATELET VOLUME 11.1 FL (7.4-10.4); MONOCYTES # (AUTO) 0.9 X 10^3 (0.0-1.0); MONOCYTES % (AUTO) 5 % (0-12); NEUTROPHILS % (AUTO) 75 % (42-75); PLATELET COUNT 290 10^3/uL (130-400); RED CELL DISTRIBUTION WIDTH 14.4 % (10.0-14.5); WHITE BLOOD COUNT 15.9 10^3/uL (4.3-11.0)
[2019-05-29 12:22] LABS: ALBUMIN 3.2 GM/DL (3.2-4.5); CHLORIDE 106 MMOL/L (98-107); POTASSIUM 3.9 MMOL/L (3.6-5.0); SODIUM 135 MMOL/L (135-145)
[2019-05-29 12:23] LABS: CALCIUM 9.1 MG/DL (8.5-10.1)
[2019-05-29 12:24] LABS: GLUCOSE 86 MG/DL (70-105); TOTAL PROTEIN 6.8 GM/DL (6.4-8.2)
[2019-05-29 12:25] LABS: CARBON DIOXIDE 17 MMOL/L (21-32)
[2019-05-29 12:26] LABS: BILIRUBIN,TOTAL 0.2 MG/DL (0.1-1.0)
[2019-05-29 12:27] VITALS: BP 138/80
[2019-05-29 12:27] LABS: BAND NEUTROPHILS 2 %; LYMPHOCYTES % (MANUAL) 20 %; METAMYELOCYTES % 1 %; MONOCYTES % (MANUAL) 3 %; NEUTROPHILS % (MANUAL) 74 %; RBC MORPH NORMAL
[2019-05-29 12:28] LABS: ALKALINE PHOSPHATASE 85 U/L (40-136); CREATININE SERUM 0.64 MG/DL (0.60-1.30); GFR ESTIMATED > 60
[2019-05-29 12:29] LABS: BUN/CREATININE RATIO 9
[2019-05-29 12:31] LABS: ALANINE AMINOTRANSFERASE 10 U/L (0-55)
--- NOTE | 2019-05-29 12:55 | NUR ---
Dr cueto called with pt report and lab results. current BP's. Dr Cueto okay with pt DC to home. Dr Cueto states she will consult EFM to see if there is anything more she needs to do with pt care sine she has persistent headache and will let pt know.
--- NOTE | 2019-05-30 08:22 | Physician Query-Final Dx ---
Clinic Account Progress/Dx Physician Query: Please give diagnosis Please include # weeks gestation Date of Service May 29, 2019 at 10:55 PAYTON JUAREZ May 30, 2019 08:22
== END 2019-05-29 13:05 | disposition home or self-care (01) ==
LOC: LDRP 10:55 → WSo 10:55
PROVIDERS: ATTEND Family Medicine
DX: O26.899 Other specified pregnancy related conditions, unspecified trimester (principal); Z3A.00 Weeks of gestation of pregnancy not specified
CPT/HCPCS: 36415; 80053; 82570; 83615; 84156; 84550; 85007; 85027; 96372; 99213

== ENCOUNTER 2019-06-18 18:27 | Inpatient (IN) | payer OTHER, BC ==
[2019-06-18] VITALS (7 sets, daily range): BP systolic 133–181; BP diastolic 63–97
[~2019-06-18] VITALS: Ht 175.3 cm; Wt 153.7 kg
[2019-06-18] MEDS ORDERED: LACTATED RINGERS 1,000 ML IV SCH (19:07)
[2019-06-18] MEDS ORDERED: D5 LR IV SOLUTION 1,000 ML IV ONE (19:39)
[2019-06-18] MEDS ORDERED: PREN-53 PO (19:42)
[2019-06-18] MEDS ORDERED: LABE100T6 PO (19:42)
[2019-06-18 20:11] LABS: BASOPHILS % (AUTO) 0 % (0-10); EOSINOPHILS % (AUTO) 0 % (0-10); HEMATOCRIT 34 % (35-52); HEMOGLOBIN 11.3 G/DL (11.5-16.0); LYMPHOCYTES # (AUTO) 2.2 X 10^3 (1.0-4.0); LYMPHOCYTES % (AUTO) 18 % (12-44); MEAN CORPUSCULAR HEMOGLOBIN 27 PG (25-34); MEAN CORPUSCULAR HGB CONC 33 G/DL (32-36); MEAN CORPUSCULAR VOLUME 81 FL (80-99); MEAN PLATELET VOLUME 11.8 FL (7.4-10.4); MONOCYTES # (AUTO) 0.7 X 10^3 (0.0-1.0); MONOCYTES % (AUTO) 6 % (0-12); NEUTROPHILS # (AUTO) 9.2 X 10^3 (1.8-7.8); NEUTROPHILS % (AUTO) 76 % (42-75); PLATELET COUNT 295 10^3/uL (130-400); RED CELL DISTRIBUTION WIDTH 14.6 % (10.0-14.5); WHITE BLOOD COUNT 12.1 10^3/uL (4.3-11.0)
[2019-06-18] MEDS: D5 LR IV SOLUTION 1,000 ML IV SCH (20:16)
[2019-06-18] MEDS ORDERED: WATER (STERILE) FOR INJECTION 20 ML ONE (20:30)
[2019-06-18] MEDS ORDERED: AMPICILLIN FOR IV USE 2,000 MG VIAL ONE (20:30)
--- OUTSIDE RECORDS SUMMARY | 2019-06-18 20:39 | XMS REPORT | Continuity of Care Document ---
Author Organization Unknown Address Unknown Phone Unavailable Allergies Active Description Code Type Severity Reaction Onset Reported/Identified Relationship to Patient Clinical Status Yes No Known Drug Allergies [id number] Drug Allergy Unknown N/A 01/09/2019 Medications There is no data. Problems Date Dx Coded Attending Type Code Diagnosis Diagnosed By 01/09/2019 DAMIAN ZELAYA MD Ot K52. 9 NONINFECTIVE GASTROENTERITIS AND COLITIS 01/09/2019 DAMIAN ZELAYA MD Ot K59. 00 CONSTIPATION, UNSPECIFIED 01/09/2019 DAMIAN ZELAYA MD Ot O16. 1 UNSPECIFIED MATERNAL HYPERTENSION, FIRST 01/09/2019 DAMIAN ZELAYA MD Ot O99.612 DISEASES OF THE DGSTV SYS COMP 01/09/2019 DAMIAN ZELAYA MD Ot R50. 9 FEVER, UNSPECIFIED 01/09/2019 DAMIAN ZELAYA MD Ot Z3A. 14 14 WEEKS GESTATION OF 01/09/2019 DAMIAN ZELAYA MD Ot Z77. 22 CNTCT W AND EXPSR TO ENVIRON TOBACCO SMO 01/09/2019 DAMIAN ZELAYA MD Ot Z87.891 PERSONAL HISTORY OF NICOTINE DEPENDENCE 01/14/2019 DAMIAN ZELAYA MD Ot K52. 9 [...] Ot Z87.891 PERSONAL HISTORY OF NICOTINE DEPENDENCE 05/17/2019 DEENA ARVIZU MD Ot O12.03 GESTATIONAL EDEMA, THIRD TRIMESTER 05/17/2019 DEENA ARVIZU MD Ot O16 .3 UNSPECIFIED MATERNAL HYPERTENSION, THIRD 05/17/2019 DEENA ARVIZU MD Ot Z3A.32 32 WEEKS GESTATION OF 05/21/2019 DEENA ARVIZU MD Ot O12.03 GESTATIONAL EDEMA, THIRD TRIMESTER 05/21/2019 DEENA ARVIZU MD Ot O16 .3 UNSPECIFIED MATERNAL HYPERTENSION, THIRD 05/21/2019 DEENA ARVIZU MD Ot Z3A.32 32 WEEKS GESTATION OF 05/30/2019 DEENA ARVIZU MD Ot O16 .9 UNSPECIFIED MATERNAL HYPERTENSION, UNSPE 05/30/2019 DEENA ARVIZU MD Ot Z3A.34 34 WEEKS GESTATION OF 05/31/2019 DEENA ARVIZU MD Ot O26.899 OT RELATED CONDITIONS, UNSPEC 05/31/2019 DEENA ARVIZU MD Ot Z3A.00 WEEKS OF GESTATION OF NOT SPEC 06/04/2019 DEENA ARVIZU MD Ot O26.899 OTSabiha RELATED CONDITIONS, UNSPEC 06/04/2019 DEENA ARVIZU MD Ot Z3A.00 WEEKS OF GESTATION OF NOT SPEC Procedures There is no data. Results Test [...] 7-25 CREATININE 0.72 mg/dL 0.50-1.10 eGFR NON-AFR. SUDANESE 119 mL/min/1.73m2 > OR = 60 eGFR [...] NRG STATEMENT OF ADEQUACY: NRG INTERPRETATION/RESULT: NRG SAFETY PROFESSIONAL: NRG HPV mRNA E6/E7, SUREPATH VIAL Not Detected NOT DETECTED REVIEW SAFETY PROFESSIONAL: NRG COMMENT NRG URINE PROTEIN 24 HOUR [...] of 1996 NRG Collection Date 01/22/2019 NRG CULTURE, GENITAL - 02/19/19 19:00 CULTURE, GENITAL SEE NOTE NRG LDH - 03/13/19 16:04 LD 116 U/L 100-200 URIC ACID, SERUM - 03/13/19 16:04 URIC ACID 5.0 mg/dL 2.5-7.0 GLUCOSE KIRSTY 1 HOUR - 04/05/19 14:58 GLUCOSE, POSTPRANDIAL/ 1 HOUR 141 mg/dL See Note: SYPHILIS (RPR W/ REFLEX CONFIRMATION) - 04/05/19 14:58 RPR (DX) W/REFL TITER AND CONFIRMATORY TESTING NON-REACTIVE NON-REACTIVE GLUCOSE KIRSTY 3 HOUR - 04/11/19 14:04 TIME 1 0830 NRG SPECIMEN 1 86 mg/dL 65-99 TIME 2 0930 NRG SPECIMEN 2 165 mg/dL NRG TIME 3 1030 NRG SPECIMEN 3 109 mg/dL NRG TIME 4 1130 NRG SPECIMEN 4 56 mg/dL NRG COMMENT NRG PROTEIN, TOTAL W/CREAT, RANDOM URINE - 0 05/01/19 14:34 CREATININE, RANDOM URINE 110 mg/dL 20-27 5 PROTEIN/CREATININE RATIO 127 mg/g creat 21-161 PROTEIN, TOTAL, RANDOM UR 14 mg/dL 5-24 Urine protein/creatinine mass ratio - 10:50 Urine protein measurement (mass/volume) 11 mg/dL 6-12 Urine creatinine measurement (mass/volume) 64 mg/d L 30-125 Urine protein/creatinine mass ratio 0.17 NRG Automated blood complete blood count (he mogram) panel - 05/17/19 10:55 Blood leukocytes automated count (number/volume) 13.9 10*3/uL 4.3-11.0 Blood erythrocytes automated count (number/volume) 3.86 10*6/uL 4.35-5.85 Venous blood hemoglobin measurement (mass/volume) 10.5 g/dL 11.5-16.0 Blood hematocrit (volume fraction) 32 % 35-52 Automated erythrocyte mean corpuscular volume 82 [ foz_us] 80-99 Automated erythrocyte mean corpuscular h emoglobin (mass per erythrocyte) 27 pg 25-34 Automated erythrocyte mean corpuscular h emoglobin concentration measurement (mass/volume) 33 g/dL 32-36 Automated erythrocyte distribution width ratio 14. 1 % 10.0- 14.5 Automated blood platelet count (count/volume) 281 10*3/uL 130-400 Automated blood platelet mean volume measurement 11.1 [foz_us] 7.4-10.4 Comprehensive metabolic panel - 05/17/19 10:55 Serum or plasma sodium measurement (moles/volume) 135 mmol/L 135-145 Serum or plasma potassium measurement (moles/volume) 4.2 mmol/L 3.6-5.0 Serum or plasma chloride measurement (moles/volume) 106 mmol/L 98-107 Carbon dioxide 18 mmol/L 21-32 Serum or plasma anion gap determination (moles/volume) 11 mmol/L 5-14 Serum or plasma urea nitrogen measurement (mass/volume ) 7 mg/dL 7-18 Serum or plasma creatinine measurement (mass/volume) 0.66 mg/dL 0.60-1.30 Serum or plasma urea nitrogen/creatinine mass ratio 11 NRG Serum or plasma creatinine measurement w ith calculation of estimated glomerular filtration rate > NRG Serum or plasma glucose measurement (mass/volume) 88 mg/dL 70-105 Serum or plasma calcium measurement (mass/volume) 9.1 mg/dL 8.5-10.1 Serum or plasma total bilirubin measurement (mass/volu me) 0.1 mg/dL 0.1-1.0 Serum or plasma alkaline phosphatase brinda surement (enzymatic activity/volume) 79 U/L 40-136 Serum or plasma aspartate aminotransfera se measurement (enzymatic activity/volume) 8 U/L 5-34 Serum or plasma alanine aminotransferase measurement (enzymatic activity/volume) 7 U/L 0-55 Serum or plasma protein measurement (mass/volume) 6.7 g/dL 6.4-8.2 Serum or plasma albumin measurement (mass/volume) 3.4 g/dL 3.2-4.5 CALCIUM CORRECTED 9.6 mg/dL 8.5-10.1 Serum or plasma uric acid measurement (m ass/volume) - 05/17/19 10:55 Serum or plasma uric acid measurement (mass/volume) 4.5 mg/dL 2.6-7.2 Serum ragweed IgE antibody assay - 05/16 10:55 Serum ragweed IgE antibody assay 140 U/L 125-220 Urine protein/creatinine mass ratio - 08:50 Urine protein measurement (mass/volume) 10 mg/dL 6-12 Urine creatinine measurement (mass/volume) 68 mg/d L 30-125 Urine protein/creatinine mass ratio 0.15 NRG Complete blood count (CBC) with automate d white blood cell (WBC) differential - 05/28/19 09:10 Blood leukocytes automated count (number/volume) 12.0 10*3/uL 4.3-11.0 Blood erythrocytes automated count (number/volume) 3.81 10*6/uL 4.35-5.85 Venous blood hemoglobin measurement (mass/volume) 10.5 g/dL 11.5-16.0 Blood hematocrit (volume fraction) 31 % 35-52 Automated erythrocyte mean corpuscular volume 82 [ foz_us] 80-99 Automated erythrocyte mean corpuscular h emoglobin (mass per erythrocyte) 28 pg 25-34 Automated erythrocyte mean corpuscular h emoglobin concentration measurement (mass/volume) 33 g/dL 32-36 Automated erythrocyte distribution width ratio 14. 6 % 10.0- 14.5 Automated blood platelet count (count/volume) 284 10*3/uL 130-400 Automated blood platelet mean volume measurement 11.1 [foz_us] 7.4-10.4 Automated blood neutrophils/100 leukocytes 79 % 42-75 Automated blood lymphocytes/100 leukocytes 16 % 12-44 Blood monocytes/100 leukocytes 5 % 0-12 Automated blood eosinophils/100 leukocytes 1 % 0-10 Automated blood basophils/100 leukocytes 0 % 0-10 Blood neutrophils automated count (number/volume) 9.5 10*3 1.8-7.8 Blood lymphocytes automated count (number/volume) 1.9 10*3 1.0-4.0 Blood monocytes automated count (number/volume) 0. 6 10*3 0.0-1.0 Automated eosinophil count 0.1 10*3/uL 0 .0-0.3 Automated blood basophil count (count/volume) 0.0 10*3/uL 0.0-0.1 Comprehensive metabolic panel - 05/28/19 09:10 Serum or plasma sodium measurement (moles/volume) 136 mmol/L 135-145 Serum or plasma potassium measurement (moles/volume) 4.1 mmol/L 3.6-5.0 Serum or plasma chloride measurement (moles/volume) 106 mmol/L 98-107 Carbon dioxide 17 mmol/L 21-32 Serum or plasma anion gap determination (moles/volume) 13 mmol/L 5-14 Serum or plasma urea nitrogen measurement (mass/volume ) 6 mg/dL 7-18 Serum or plasma creatinine measurement (mass/volume) 0.67 mg/dL 0.60-1.30 Serum or plasma urea nitrogen/creatinine mass ratio 9 NRG Serum or plasma creatinine measurement w ith calculation of estimated glomerular filtration rate > NRG Serum or plasma glucose measurement (mass/volume) 103 mg/dL 70-105 Serum or plasma calcium measurement (mass/volume) 9.0 mg/dL 8.5-10.1 Serum or plasma total bilirubin measurement (mass/volu me) 0.2 mg/dL 0.1-1.0 Serum or plasma alkaline phosphatase brinda surement (enzymatic activity/volume) 78 U/L 40-136 Serum or plasma aspartate aminotransfera se measurement (enzymatic activity/volume) 11 U/L 5-34 Serum or plasma alanine aminotransferase measurement (enzymatic activity/volume) 9 U/L 0-55 Serum or plasma protein measurement (mass/volume) 6.7 g/dL 6.4-8.2 Serum or plasma albumin measurement (mass/volume) 3.2 g/dL 3.2-4.5 CALCIUM CORRECTED 9.6 mg/dL 8.5-10.1 Serum or plasma uric acid measurement (m ass/volume) - 05/28/19 09:10 Serum or plasma uric acid measurement (mass/volume) 5.1 mg/dL 2.6-7.2 Serum ragweed IgE antibody assay - 05/27 09:10 Serum ragweed IgE antibody assay 156 U/L 125-220 [id number] - 05/28/19 09:10 [id number] SPECIMEN AVAILABLE [facility] Urine protein/creatinine mass ratio - 11:40 Urine protein measurement (mass/volume) 9 mg/dL 6-12 Urine creatinine measurement (mass/volume) 71 mg/d L 30-125 Urine protein/creatinine mass ratio 0.13 [facility] Blood CBC with ordered manual differenti al panel - 05/29/19 12:05 Blood leukocytes automated count (number/volume) 15.9 10*3/uL 4.3-11.0 Blood erythrocytes automated count (number/volume) 3.79 10*6/uL 4.35-5.85 Venous blood hemoglobin measurement (mass/volume) 10.4 g/dL 11.5-16.0 Blood hematocrit (volume fraction) 31 % 35-52 Automated erythrocyte mean corpuscular volume 82 [ foz_us] 80-99 Automated erythrocyte mean corpuscular h emoglobin (mass per erythrocyte) 27 pg 25-34 Automated erythrocyte mean corpuscular h emoglobin concentration measurement (mass/volume) 33 g/dL 32-36 Automated erythrocyte distribution width ratio 14. 4 % 10.0- 14.5 Automated blood platelet count (count/volume) 290 10*3/uL 130-400 Automated blood platelet mean volume measurement 11.1 [foz_us] 7.4-10.4 Automated blood neutrophils/100 leukocytes 75 % 42-75 Automated blood lymphocytes/100 leukocytes 19 % 12-44 Blood monocytes/100 leukocytes 3 % [facility] Automated blood eosinophils/100 leukocytes 0 % 0-10 Automated blood basophils/100 leukocytes 0 % 0-10 Blood neutrophils automated count (number/volume) 12.0 10*3 1.8-7.8 Blood lymphocytes automated count (number/volume) 3.0 10*3 1.0-4.0 Blood monocytes automated count (number/volume) 0. 9 10*3 0.0-1.0 Automated eosinophil count 0.0 10*3/uL 0 .0-0.3 Automated blood basophil count (count/volume) 0.0 10*3/uL 0.0-0.1 Manual blood segmented neutrophils/100 leukocytes 74 % NRG Blood band neutrophils/100 leukocytes 2 % NRG Manual blood lymphocytes/100 leukocytes 20 % NRG Blood erythrocyte morphology finding identification NORMAL NRG Manual blood metamyelocytes/100 leukocytes 1 % NRG Comprehensive metabolic panel - 05/29/19 12:05 Serum or plasma sodium measurement (moles/volume) 135 mmol/L 135-145 Serum or plasma potassium measurement (moles/volume) 3.9 mmol/L 3.6-5.0 Serum or plasma chloride measurement (moles/volume) 106 mmol/L 98-107 Carbon dioxide 17 mmol/L 21-32 Serum or plasma anion gap determination (moles/volume) 12 mmol/L 5-14 Serum or plasma urea nitrogen measurement (mass/volume ) 6 mg/dL 7-18 Serum or plasma creatinine measurement (mass/volume) 0.64 mg/dL 0.60-1.30 Serum or plasma urea nitrogen/creatinine mass ratio 9 NRG Serum or plasma creatinine measurement w ith calculation of estimated glomerular filtration rate > NRG Serum or plasma glucose measurement (mass/volume) 86 mg/dL 70-105 Serum or plasma calcium measurement (mass/volume) 9.1 mg/dL 8.5-10.1 Serum or plasma total bilirubin measurement (mass/volu me) 0.2 mg/dL 0.1-1.0 Serum or plasma alkaline phosphatase brinda surement (enzymatic activity/volume) 85 U/L 40-136 Serum or plasma aspartate aminotransfera se measurement (enzymatic activity/volume) 9 U/L 5-34 Serum or plasma alanine aminotransferase measurement (enzymatic activity/volume) 10 U/L 0-55 Serum or plasma protein measurement (mass/volume) 6.8 g/dL 6.4-8.2 Serum or plasma albumin measurement (mass/volume) 3.2 g/dL 3.2-4.5 CALCIUM CORRECTED 9.7 mg/dL 8.5-10.1 Serum or plasma uric acid measurement (m ass/volume) - 05/29/19 12:05 Serum or plasma uric acid measurement (mass/volume) 5.0 mg/dL 2.6-7.2 Serum ragweed IgE antibody assay - 05/28 12:05 Serum ragweed IgE antibody assay 141 U/L 125-220 CMP - 06/04/19 13:42 GLUCOSE 76 mg/dL 65-139 UREA NITROGEN (BUN) 7 mg/dL 7-25 CREATININE 0.58 mg/dL 0.50-1.10 eGFR NON-AFR. SUDANESE 131 mL/min/1.73m2 > OR = 60 eGFR 152 mL/min/1.73m2 > OR = 60 BUN/CREATININE RATIO NOT APPLICABLE (calc) 6-22 SODIUM 136 mmol/L 135-146 POTASSIUM 4.5 mmol/L 3.5-5.3 CHLORIDE 102 mmol/L 98-110 CARBON DIOXIDE 19 mmol/L 20-32 CALCIUM 9.3 mg/dL 8.6-10.2 PROTEIN, TOTAL 6.2 g/dL 6.1-8.1 ALBUMIN 3.2 g/dL 3.6-5.1 GLOBULIN 3.0 g/dL (calc) 1.9-3.7 ALBUMIN/GLOBULIN RATIO 1.1 (calc) 1.0-2. 5 BILIRUBIN, TOTAL 0.2 mg/dL 0.2-1.2 ALKALINE PHOSPHATASE 97 U/L 31-125 AST 8 U/L 10-30 ALT 6 U/L 6-29 LDH - 06/04/19 13:42 LD 143 U/L 100-200 URIC ACID, SERUM - 06/04/19 13:42 URIC ACID 5.3 mg/dL 2.5-7.0 GLUCOSE KIRSTY 3 HOUR - 06/04/19 13:42 TIME 1 NG NRG SPECIMEN 1 77 mg/dL 65-99 TIME 2 NG NRG SPECIMEN 2 172 mg/dL NRG TIME 3 NG NRG SPECIMEN 3 117 mg/dL NRG TIME 4 NG NRG SPECIMEN 4 65 mg/dL NRG COMMENT NRG PROTEIN, TOTAL W/CREAT, RANDOM URINE - 0 06/04/19 13:42 CREATININE, RANDOM URINE 59 mg/dL 20-27 5 PROTEIN/CREATININE RATIO 203 mg/g creat 21-161 PROTEIN, TOTAL, RANDOM UR 12 mg/dL 5-24 CBC - 06/04/19 13:42 WHITE BLOOD CELL COUNT 13.5 Thousand/uL 3.8-10.8 RED BLOOD CELL COUNT 4.00 Million/uL 3.8 0-5.10 HEMOGLOBIN 10.9 g/dL 11.7-15.5 HEMATOCRIT 33.3 % 35.0-45.0 MCV 83.3 fL 80.0-100.0 MCH 27.3 pg 27.0-33.0 MCHC 32.7 g/dL 32.0-36.0 RDW 13.8 % 11.0-15.0 PLATELET COUNT 290 Thousand/uL 140-400 MPV 11.1 fL 7.5-12.5 ABSOLUTE NEUTROPHILS 53725 cells/uL 1500 -7800 ABSOLUTE LYMPHOCYTES 2255 cells/uL 850-3 900 ABSOLUTE MONOCYTES 527 cells/uL 200-950 ABSOLUTE EOSINOPHILS 54 cells/uL 15-500 ABSOLUTE BASOPHILS 14 cells/uL 0-200 NEUTROPHILS 78.9 % NRG LYMPHOCYTES 16.7 % NRG MONOCYTES 3.9 % NRG EOSINOPHILS 0.4 % NRG BASOPHILS 0.1 % NRG URIC ACID, SERUM - 06/11/19 11:56 URIC ACID 5.6 mg/dL 2.5-7.0 PROTEIN, TOTAL W/CREAT, RANDOM URINE - 0 06/11/19 11:56 CREATININE, RANDOM URINE 116 mg/dL 20-27 5 PROTEIN/CREATININE RATIO 190 mg/g creat 21-161 PROTEIN, TOTAL, RANDOM UR 22 mg/dL 5-24 CBC - 06/11/19 11:56 WHITE BLOOD CELL COUNT 15.3 Thousand/uL 3.8-10.8 RED BLOOD CELL COUNT 4.21 Million/uL 3.8 0-5.10 HEMOGLOBIN 11.4 g/dL 11.7-15.5 HEMATOCRIT 35.2 % 35.0-45.0 MCV 83.6 fL 80.0-100.0 MCH 27.1 pg 27.0-33.0 MCHC 32.4 g/dL 32.0-36.0 RDW 13.9 % 11.0-15.0 PLATELET COUNT 316 Thousand/uL 140-400 MPV 10.8 fL 7.5-12.5 ABSOLUTE NEUTROPHILS 51709 cells/uL 1500 -7800 ABSOLUTE LYMPHOCYTES 2509 cells/uL 850-3 900 ABSOLUTE MONOCYTES 673 cells/uL 200-950 ABSOLUTE EOSINOPHILS 46 cells/uL 15-500 ABSOLUTE BASOPHILS 31 cells/uL 0-200 NEUTROPHILS 78.7 % NRG LYMPHOCYTES 16.4 % NRG MONOCYTES 4.4 % NRG EOSINOPHILS 0.3 % NRG BASOPHILS 0.2 % NRG CULTURE, GROUP B STREP (VAGINAL) - 06/10 11:56 STREPTOCOCCUS, GROUP B CULTURE SEE NOTE NRG Complete blood count (CBC) with automate d white blood cell (WBC) differential - 06/18/19 19:30 Blood leukocytes automated count (number/volume) 12.1 10*3/uL 4.3-11.0 Blood erythrocytes automated count (number/volume) 4.19 10*6/uL 4.35-5.85 Venous blood hemoglobin measurement (mass/volume) 11.3 g/dL 11.5-16.0 Blood hematocrit (volume fraction) 34 % 35-52 Automated erythrocyte mean corpuscular volume 81 [ foz_us] 80-99 Automated erythrocyte mean corpuscular h emoglobin (mass per erythrocyte) 27 pg 25-34 Automated erythrocyte mean corpuscular h emoglobin concentration measurement (mass/volume) 33 g/dL 32-36 Automated erythrocyte distribution width ratio 14. 6 % 10.0- 14.5 Automated blood platelet count (count/volume) 295 10*3/uL 130-400 Automated blood platelet mean volume measurement 11.8 [foz_us] 7.4-10.4 Automated blood neutrophils/100 leukocytes 76 % 42-75 Automated blood lymphocytes/100 leukocytes 18 % 12-44 Blood monocytes/100 leukocytes 6 % 0-12 Automated blood eosinophils/100 leukocytes 0 % 0-10 Automated blood basophils/100 leukocytes 0 % 0-10 Blood neutrophils automated count (number/volume) 9.2 10*3 1.8-7.8 Blood lymphocytes automated count (number/volume) 2.2 10*3 1.0-4.0 Blood monocytes automated count (number/volume) 0. 7 10*3 0.0-1.0 Automated eosinophil count 0.0 10*3/uL 0 .0-0.3 Automated blood basophil count (count/volume) 0.0 10*3/uL 0.0-0.1 Encounters ACCT No. Visit Date/Time Discharge Status Pt. Type Provider Facility Loc./Unit Complaint [id number] 06/14/2019 10:00:00 06/14/2019 23:59: 59 CLS Outpatient DEENA ARVIZU MD [facility] [id number] 06/11/2019 11:00:00 Document Registration [id number] 06/04/2019 10:20:00 Document Registration [id number] 05/01/2019 11:20:00 Document Registration [id number] 04/11/2019 14:00:00 Document Registration [id number] 04/05/2019 15:00:00 Document Registration [id number] 03/13/2019 15:40:00 Document Registration [id number] 02/19/2019 13:20:00 Document Registration [id number] 01/22/2019 13:20:00 Document Registration [id number] 12/10/2018 09:00:00 Document Registration [id number] 11/20/2018 08:20:00 Document Registration [id number] 11/14/2018 13:20:00 Document Registration [id number] 11/02/2018 09:20:00 Document Registration [id number] 07/25/2018 09:00:00 Document Registration [id number] 04/25/2018 10:40:00 Document Registration [id number] 04/16/2018 08:20:00 Document Registration [id number] 05/29/2019 10:55:00 13:05:00 DIS Outpatient DEENA ARVIZU MD [facility] HIGH BP [id number] 05/28/2019 08:39:00 13:15:00 DIS Outpatient [facility] [id number] 05/17/2019 10:30:00 13:23:00 DIS Outpatient DEENA ARVIZU MD [facility] HIGH BLOOD PRESSURE [id number] 01/09/2019 17:13:00 19:34:00 DIS Emergency DAMIAN ZELAYA MD [facility] ER CONSTIPATION,VOMITING, FEVER [id number] 06/18/2019 19:00:00 P EN Preadmit DEENA ARVIZU MD INDUCTION
[2019-06-18] MEDS: MISOPROSTOL 100 MCG (CYTOTEC) TAB PV PRN (20:48)
[2019-06-18 21:05] LABS: ALANINE AMINOTRANSFERASE 7 U/L (0-55); ALBUMIN 3.2 GM/DL (3.2-4.5); ALKALINE PHOSPHATASE 105 U/L (40-136); BILIRUBIN,TOTAL 0.1 MG/DL (0.1-1.0); BUN/CREATININE RATIO 11; CALCIUM 9.7 MG/DL (8.5-10.1); CARBON DIOXIDE 16 MMOL/L (21-32); CHLORIDE 106 MMOL/L (98-107); CREATININE SERUM 0.73 MG/DL (0.60-1.30); GFR ESTIMATED > 60; GLUCOSE 116 MG/DL (70-105); POTASSIUM 4.7 MMOL/L (3.6-5.0); SODIUM 137 MMOL/L (135-145)
[2019-06-18] MEDS: CATHETER FLUSH 10 ML SYR IV SCH (22:00)
[2019-06-18] MEDS ORDERED: fentaNYL INJECTION 100 MCG/2 ML AMP IVP PRN (22:15)
[2019-06-18] MEDS ORDERED: NIFE10CA PO (22:58)
[2019-06-19] VITALS (44 sets, daily range): BP systolic 116–181; BP diastolic 58–127
[2019-06-19] MEDS: MISOPROSTOL 100 MCG (CYTOTEC) TAB PV PRN ×2 (00:56→05:00)
[2019-06-19] MEDS: AMPICILLIN FOR IV USE 1,000 MG in WATER (STERILE) FOR INJECTION 7.4 ML IV SCH ×4 (00:56→14:37)
[2019-06-19] MEDS: D5 LR IV SOLUTION 1,000 ML IV SCH ×3 (03:16→15:52)
[2019-06-19] MEDS: CATHETER FLUSH 10 ML SYR IV SCH ×2 (06:00→15:55)
--- NOTE | 2019-06-19 07:50 | History & Physical-OB ---
OB - Chief Complaint & HPI Date/Time Date of Admission: Date of Admission: June 18, 2019 at 18:27 Date seen by a Provider: June 19, 2019 Time Seen by a Provider: 07:48 Chief Complaint/History OB-Reason for Admission/Chief: Medical Complication Hx : 1 Hx Para: 0 Expected Date of Delivery: Jul 08, 2019 Gestational Age in Weeks: 37 Gestational Age in Days: 2 Indication for induction: medical complication Admission Nurse Assessment Rev: Yes History of Labs A+, antibody neg, RI. HIV/HepB/RPR NR. GC/chlamydia neg. 1 hour and 3 hour glucola neg. GBS pos. Other Chronic hypertension complicating , requiring increasing doses of nifedipine over last few weeks, preeclampsia labs weekly negative up until time of admit. Weekly BPP normal, growth at 2 weeks advanced, EFW 7#5 oz on 06/10. Allergies and Home Medications Allergies Coded Allergies: No Known Drug Allergies (Unverified , 01/09/19) Home Medications Nifedipine 10 Mg Capsule, 90 MG PO DAILY, (Reported) Nxt061/Iron Fumarate/FA/Dss 1 Each Tablet, 1 EACH PO DAILY, (Reported) Patient Home Medication List Home Medication List Reviewed: Yes OB - History Hx of Present Care: Yes Ultrasounds: Normal mid trimester US Obstetrical Complications: Other (chronic hypertension, difficult to control, severe headache, obesity) Information Induced Hypertension: Yes (chronic hypertension) Maternal Gestational Diabetes: No Hemorrhage: No Obstetrical History Hx : 1 Hx Para: 0 Hx # Term Pregnancies: 0 Hx # Pregnancies: 0 Number of Living Children: 0 Hx Termination: No Hx Multiple Gestation: No Hx Ectopic : No Hx Stillbirth: No Hx Complication: No Hx Induced Hypertens: Yes (chronic hypertension) Hx Maternal Gestational Diabet: No Hx Hemorrhage: No Delivery History Hx Dystocia: No Hx Forceps Assisted Delivery: No Hx Vacuum Extraction Assisted: No Hx Placenta Abnormality: No Hx Distress: No Hx Large For Gestational Age I: No Hx Small for Gestational Age I: No Hx Section: No Hx Vaginal Delivery Post C-Sec: No Hx Blood Disorders: No Adverse Rxn to Tranfusion: No Patient Past Medical History PMHx: Hypertension SurgHx:Tonsillectomy/adenoidectomy Social History/Family History HIV/AIDS: No Sexually Transmitted Disease: No Alcohol Use: Denies Use Recreational Drug Use: No Smoking Cessation: Former smoker 2nd Hand Smoke Exposure: No Immunizations Tetanus Booster (TDap): Less than 5yrs (05/01/2019) Rubella: immune RPR/VDRL: Negative GBS Status: Positive HBsAG: Negative OB - Admission Exam Physical Exam Vitals: Vital Signs 06/18/19 06/19/19 06/19/19 21:00 05:05 06:05 Temp 36.5 Pulse 82 Resp 16 B/P (MAP) 138/79 (98) Pulse Ox 98 O2 Delivery Room Air HEENT: NCAT Abdomen: Non tender Extremities: Edema Cervical Dilatation: 1cm Effacement: 0% Station: Ballotable Membranes: Intact Accelerations: Accelerations Present Decelerations: No Decelerations Contractions on Admission: None Das Scoring Tool (Modified) Dilation (cm): 1-2cm (1) Effacement (%): 0-30% (0) Descent/Station: -3 (0) Cervix Consistency: Soft (2) Cervix Position: Anterior (2) Subtract 1 point for: Nulliparity (-1) Das Score: 4 Labs Laboratory Tests Test 06/18/19 19:00 06/18/19 19:30 Range/Units Urine Protein 24 H 6-12 MG/DL Urine Creatinine 149 H 30-125 MG/DL Urine Protein/Creatinine Ratio 0.16 White Blood Count 12.1 H 4.3-11.0 10^3/uL Red Blood Count 4.19 L 4.35-5.85 10^6/uL Hemoglobin 11.3 L 11.5-16.0 G/DL Hematocrit 34 L 35-52 % Mean Corpuscular Volume 81 80-99 FL Mean Corpuscular Hemoglobin 27 25-34 PG Mean Corpuscular Hemoglobin Concent 33 32-36 G/DL Red Cell Distribution Width 14.6 H 10.0-14.5 % Platelet Count 295 130-400 10^3/uL Mean Platelet Volume 11.8 H 7.4-10.4 FL Neutrophils (%) (Auto) 76 H 42-75 % Lymphocytes (%) (Auto) 18 12-44 % Monocytes (%) (Auto) 6 0-12 % Eosinophils (%) (Auto) 0 0-10 % Basophils (%) (Auto) 0 0-10 % Neutrophils # (Auto) 9.2 H 1.8-7.8 X 10^3 Lymphocytes # (Auto) 2.2 1.0-4.0 X 10^3 Monocytes # (Auto) 0.7 0.0-1.0 X 10^3 Eosinophils # (Auto) 0.0 0.0-0.3 10^3/uL Basophils # (Auto) 0.0 0.0-0.1 10^3/uL Sodium Level 137 135-145 MMOL/L Potassium Level 4.7 3.6-5.0 MMOL/L Chloride Level 106 98-107 MMOL/L Carbon Dioxide Level 16 L 21-32 MMOL/L Anion Gap 15 H 5-14 MMOL/L Blood Urea Nitrogen 8 7-18 MG/DL Creatinine 0.73 0.60-1.30 MG/DL Estimat Glomerular Filtration Rate > 60 BUN/Creatinine Ratio 11 Glucose Level 116 H 70-105 MG/DL Uric Acid 6.0 2.6-7.2 MG/DL Calcium Level 9.7 8.5-10.1 MG/DL Corrected Calcium 10.3 H 8.5-10.1 MG/DL Total Bilirubin 0.1 0.1-1.0 MG/DL Aspartate Amino Transf (AST/SGOT) 15 5-34 U/L Alanine Aminotransferase (ALT/SGPT) 7 0-55 U/L Alkaline Phosphatase 105 40-136 U/L Lactate Dehydrogenase 267 H 125-220 U/L Total Protein 7.0 6.4-8.2 GM/DL Albumin 3.2 3.2-4.5 GM/DL OB - Assessment/Plan/Diagnosis Assessment Assessment: group B positive strep, induction of labor Admission Dx Induction of labor due to worsening chronic hypertension complicating 37 weeks gestation GBS pos Admission Status: Inpatient Order (span 2 midnights) Reason for Inpatient Admission: Induction, labor, delivery and course Plan Plan: Induction Induction Method: per Misoprostol Protocol DEENA ARVIZU MD June 19, 2019 07:50
--- NOTE | 2019-06-19 09:37 | NUR ---
was called. monitor tracing reviewed. pitocin orders received
[2019-06-19] MEDS ORDERED: OXYTOCIN PRE-MIX DRIP 500 ML IV SCH (09:59)
[2019-06-19] MEDS ORDERED: OXYTOCIN PRE-MIX DRIP 500 ML IV ONE (10:05)
[2019-06-19] MEDS: NIFEdipine ER 60 MG (PROCARDIA XL) TAB PO SCH ×2 (10:18→20:17)
[2019-06-19] MEDS ORDERED: AMPICILLIN FOR IV USE 2,000 MG in WATER (STERILE) FOR INJECTION 14.8 ML IV SCH (10:20)
--- NOTE | 2019-06-19 12:18 | NUR ---
was called on cell phone. no answer, message left.
--- NOTE | 2019-06-19 12:21 | NUR ---
returned phone call. update given on SVE.
[2019-06-19] MEDS ORDERED: LABETALOL HCL 20 MG/4 ML VIAL ONE (15:36)
--- NOTE | 2019-06-19 15:39 | NUR ---
was called r/t BP's. pt c/o's BURNS. new orders received.
[2019-06-19] MEDS ORDERED: LABETALOL HCL 20 MG/4 ML VIAL IV ONE ×2 (15:45→16:15)
--- NOTE | 2019-06-19 15:59 | NUR ---
was called with BP update. new order received for IV Labetalol 40mg now
[2019-06-19] MEDS: ACETAMINOPHEN 500 MG TAB (TYLENOL) PO PRN (16:08)
--- NOTE | 2019-06-19 16:44 | NUR ---
called for consult for primary c/s.
[2019-06-19] MEDS ORDERED: LACTATED RINGERS 1,000 ML IV ONE (16:46)
[2019-06-19] MEDS ORDERED: METOCLOPRAMIDE INJ 10 MG/2 ML (REGLAN) ONE (16:46)
[2019-06-19] MEDS ORDERED: CITRIC ACID/SOB CIT (BICITRA) 30 ML UDC ONE (16:46)
[2019-06-19] MEDS ORDERED: FAMOTIDINE 20MG/2ML IV (PEPCID) ONE (16:46)
--- NOTE | 2019-06-19 16:49 | NUR ---
RN pest control supervisor notified to call OR crew.
--- NOTE | 2019-06-19 16:50 | NUR ---
consent signed for c/s and placed on chart.
[2019-06-19] MEDS: LACTATED RINGERS 1,000 ML IV PRN ×2 (16:56→17:40)
[2019-06-19] MEDS ORDERED: FAMOTIDINE 20MG/2ML IV (PEPCID) IV ONE (17:00)
[2019-06-19] MEDS ORDERED: METOCLOPRAMIDE INJ 10 MG/2 ML (REGLAN) IV ONE (17:00)
[2019-06-19] MEDS ORDERED: CITRIC ACID/SOB CIT (BICITRA) 30 ML UDC PO ONE (17:00)
--- NOTE | 2019-06-19 17:00 | Labor Progress Note ---
Labor Progress Note Labor Progress Note Date Seen by Provider: June 19, 2019 Time Seen by Provider: 16:30 Subjective: Pt is tired, having pain with contractions. Objective: Cervical exam: 1.5/thick/high Consistency: soft Position: anterior Presentation: vertex heart tones: 130 beats per minute, minimal variability, no decels Tocometer: 5 ctx/10 minutes Assessment/Plan: Debby Garcia is a 23 /Para 1 / 0,Gestational Age (wks)37 here for induction of labor due to worsening chronic hypertension. No cervical change in spite of cytotec overnight, pitocin all day and mat since 6 am. BP increasing, required 2 doses of IV labetalol in last hour and has new onset headache. Discussed with patient that I suspect she needs given the above, and she is in agreement. Discussed with Dr. Dixon who also agrees and OR crew notified. Vitals - Labs Vital Signs - I&O Vital Signs Date Time Temp Pulse Resp B/P (MAP) Pulse Ox O2 Delivery O2 Flow Rate FiO2 06/19/19 15:50 84 18 172/78 (109) Room Air 06/19/19 15:45 82 18 175/83 (113) Room Air 06/19/19 15:35 83 18 171/80 (110) Room Air 06/19/19 15:20 78 18 174/91 (118) Room Air 06/19/19 15:05 82 18 181/89 (119) Room Air 06/19/19 14:50 78 18 145/71 (95) Room Air 06/19/19 14:35 88 18 145/71 (95) Room Air 06/19/19 14:20 80 18 151/84 (106) Room Air 06/19/19 14:05 79 18 145/86 (105) Room Air 06/19/19 13:50 85 18 144/79 (100) Room Air 06/19/19 13:35 93 18 141/83 (102) Room Air 06/19/19 13:20 18 Room Air 06/19/19 13:05 91 18 141/75 (97) Room Air 06/19/19 12:50 90 18 135/88 (104) Room Air 06/19/19 12:35 18 Room Air 06/19/19 12:20 18 Room Air 06/19/19 12:14 36.3 5/13/20 12:05 76 18 132/59 (83) Room Air 06/19/19 11:50 75 18 126/58 (80) Room Air 06/19/19 11:35 82 18 140/70 (93) Room Air 06/19/19 11:20 81 18 158/73 (101) Room Air 06/19/19 11:00 82 18 146/74 (98) Room Air 06/19/19 10:45 81 18 147/75 (99) Room Air 06/19/19 10:30 76 18 144/81 (102) Room Air 06/19/19 10:00 81 18 148/79 (102) Room Air 06/19/19 09:00 77 18 140/69 (92) Room Air 06/19/19 08:00 76 18 142/75 (97) Room Air 06/19/19 07:30 35.9 06/19/19 06:05 82 16 138/79 (98) Room Air 06/19/19 05:05 36.5 79 16 137/66 (89) Room Air 06/19/19 04:05 85 16 122/59 (80) Room Air 06/19/19 03:10 87 16 144/77 (99) Room Air 06/19/19 02:05 83 16 141/73 (95) Room Air 06/19/19 01:05 36.2 91 16 146/75 (98) Room Air 06/19/19 00:05 88 16 136/76 (96) Room Air 06/18/19 23:00 36.6 96 16 133/63 (86) Room Air 06/18/19 22:30 93 16 149/69 (95) Room Air 06/18/19 22:00 100 16 142/75 (97) Room Air 06/18/19 21:30 97 16 140/71 (94) Room Air 06/18/19 21:00 36.6 96 18 144/67 (92) 98 Room Air 06/18/19 19:40 116 16 141/68 (92) Room Air 06/18/19 19:25 36.6 115 18 181/97 (125) 98 Room Air 06/18/19 19:25 36.6 115 18 98 Room Air I & O 06/19/19 07:00 Intake Total 22.2 ml Balance 22.2 ml Labs Laboratory Tests 5/12/20 19:00: Urine Protein 24H, Urine Creatinine 149H, Urine Protein/Creatinine Ratio 0.16 06/18/19 19:30: White Blood Count 12.1H, Red Blood Count 4.19L, Hemoglobin 11.3L, Hematocrit 34L , Mean Corpuscular Volume 81, Mean Corpuscular Hemoglobin 27, Mean Corpuscular Hemoglobin Concent 33, Red Cell Distribution Width 14.6H, Platelet Count 295, Mean Platelet Volume 11.8H, Neutrophils (%) (Auto) 76H, Lymphocytes (%) (Auto) 18, Monocytes (%) (Auto) 6, Eosinophils (%) (Auto) 0, Basophils (%) (Auto) 0, Neutrophils # (Auto) 9.2H, Lymphocytes # (Auto) 2.2, Monocytes # (Auto) 0.7, Eosinophils # (Auto) 0.0, Basophils # (Auto) 0.0, Sodium Level 137, Potassium Level 4.7, Chloride Level 106, Carbon Dioxide Level 16L, Anion Gap 15H, Blood Urea Nitrogen 8, Creatinine 0.73, Estimat Glomerular Filtration Rate > 60, BUN/Creatinine Ratio 11, Glucose Level 116H, Uric Acid 6.0, Calcium Level 9.7, Corrected Calcium 10.3H, Total Bilirubin 0.1, Aspartate Amino Transf (AST/SGOT) 15, Alanine Aminotransferase (ALT/SGPT) 7, Alkaline Phosphatase 105, Lactate Dehydrogenase 267H, Total Protein 7.0, Albumin 3.2 DEENA ARVIZU MD June 19, 2019 17:00
--- NOTE | 2019-06-19 17:01 | NUR ---
here to see pt.
[2019-06-19] MEDS ORDERED: D5 LR IV SOLUTION 1,000 ML IV SCH (17:09)
[2019-06-19] MEDS ORDERED: PATIENT MAY USE OWN MEDS, ALL MC SCH (17:15)
[2019-06-19] MEDS ORDERED: TETANUS,DIPTH,PERTUSS P/F (BOOSTRIX) 0.5 ML VIAL IM ONE (17:15)
[2019-06-19] MEDS ORDERED: ceFAZolin 2 GM/50 ML (PRE-MIXED) IV NR (17:15)
[2019-06-19] MEDS ORDERED: metroNIDAZOLE 500MG/100ML IVPB 100 ML IV NR (17:15)
[2019-06-19] MEDS ORDERED: MEASLES,MUMPS,RUBELLA 1 EA INJ SC ONE (17:15)
[2019-06-19] MEDS ORDERED: ceFAZolin INJECTION 2,000 MG in WATER (STERILE) FOR INJECTION 10 ML IV ONE (17:15)
[2019-06-19] MEDS ORDERED: ONDANSETRON 4 MG/2 ML (SDV) Z0FRAN IVP PRN (17:15)
[2019-06-19] MEDS ORDERED: fentaNYL INJECTION 100 MCG/2 ML AMP ONE (17:42)
[2019-06-19] MEDS ORDERED: KETAMINE/NaCl 50 MG/5 ML SYRINGE (ED ONLY) ONE (17:42)
[2019-06-19] MEDS ORDERED: OXYTOCIN PRE-MIX DRIP 1,000 ML IV ONE (18:25)
[2019-06-19] MEDS ORDERED: KETOROLAC 30 MG/ML VIAL ONE (18:25)
[2019-06-19] MEDS ORDERED: BUPIVACAINE 0.5% 30 ML (SENSORCAINE) VIAL ONE (18:36)
[2019-06-19] MEDS: KETOROLAC 30 MG/ML VIAL IVP SCH (18:45)
--- NOTE | 2019-06-19 19:26 | OPERATIVE REPORT ---
DATE OF SERVICE: 06/19/2019 PREOPERATIVE DIAGNOSES: Term at 37 weeks' gestation in labor with -induced hypertension and failure to progress. POSTOPERATIVE DIAGNOSES: Term at 37 weeks' gestation in labor with -induced hypertension and failure to progress. OPERATIVE PROCEDURE: Primary low transverse delivery of a viable male with Apgars of 8 and 9 at 1 and 5 minutes respectively. Weight 7 pounds. Cord blood pH of 7.34 and a time of 1829. OPERATIVE DESCRIPTION: With the patient in the supine position under satisfactory spinal analgesia. She was prepped and draped in the usual fashion for abdominal surgery. Mae catheter was placed in the urinary bladder. A Pfannenstiel incision was made through the skin with a scalpel. The patient's abdomen entered in the usual manner. Bladder retractor was placed in position and clean scalpel was used to make a 4 cm hysterotomy incision transversely across the lower uterine segment. That was extended by blunt dissection as well. The presenting part was vertex very high in the uterine cavity. Yin forceps were applied to facilitate the delivery of the vigorous viable male infant. had stats as noted above. was bulb suctioned on delivery of the head on completion of delivery. The umbilical cord was doubly clamped and cut and the infant passed to the channel turner in attendance for delivery. Cord blood was obtained. The placenta delivered spontaneously [place]. It was normal with a 3-vessel cord. The uterus was exteriorized. The interior wiped clean with a wet laparotomy sponge. Uterine incision closed with a running locked suture of 2-0 Vicryl. Hemostasis was satisfactory. The uterus was returned to the abdominal cavity. All blood clot and debris removed from the abdominal cavity. Sponge and needle counts were correct and hemostasis was now assured. The anterior parietal peritoneum was closed with running suture of 2-0 Vicryl. Rectus muscles were closed with that sutures as well. The rectus fascia was closed with 2-0 Vicryl. Subcutaneous tissue was closed with 2-0 Vicryl and the skin was stapled. Sponge and needle counts were correct on completion of the procedure. Estimated blood loss was 400 mL. The patient tolerated the procedure well and was transferred to the recovery room in stable condition. The had been taken stable to the full term nursery under the care of the channel turner. Job ID: [id number] DocumentID: [id number] Dictated Date: 06/19/2019 18:55:02 Karate Teacher Date: 06/19/2019 19:26:02 Dictated By: JIM KAUR MD
--- NOTE | 2019-06-19 19:45 | NUR ---
Pt. to rm 308 via bed from recovery following p c/s per Malena Rodriguez RN, oriented to rm, call light given, SCDs on, POC reviewed, pt. verbalized understanding, denies pain or needs. Report rc'd from Malena Rodriguez, child care cook.
[2019-06-19] MEDS: oxyCODONE/APAP 10/325MG (PERCOCET 10) TABLET PO PRN ×2 (20:42→21:55)
[2019-06-19] MEDS: DOCUSATE SODIUM 100 MG (COLACE) CAP PO SCH (20:42)
[2019-06-19] MEDS ORDERED: DOCUSATE SODIUM 100 MG (COLACE) CAP PO SCH (21:00)
[2019-06-20] MEDS: OXYTOCIN PRE-MIX DRIP 500 ML IV SCH ×2 (00:16→00:22)
[2019-06-20] MEDS: CATHETER FLUSH 10 ML SYR IV SCH ×3 (00:17→14:06)
[2019-06-20 00:21] VITALS: BP 138/74
[2019-06-20] MEDS: KETOROLAC 30 MG/ML VIAL IVP SCH ×3 (00:21→11:26)
[2019-06-20] MEDS: oxyCODONE/APAP 10/325MG (PERCOCET 10) TABLET PO PRN ×3 (02:32→20:27)
[2019-06-20 03:30] VITALS: BP 128/79
--- NOTE | 2019-06-20 07:48 | Progress Note ---
Standard Progress Note Progress Notes/Assess & Plan Date Seen by a Provider: June 20, 2019 Time Seen by a Provider: 07:46 Progress/Assessment & Plan This patient is without complaint. She is ambulating, voiding, tolerating oral intake well and has good pain control. Patient denies chest pain, denies shortness of breath, denies nausea or vomiting, and denies headache. Vital Signs Date Time Temp Pulse Resp B/P (MAP) Pulse Ox O2 Delivery O2 Flow Rate FiO2 06/20/19 03:30 37.0 91 18 128/79 (95) 98 Room Air 06/20/19 00:21 36.8 82 18 138/74 (95) 98 Room Air 06/19/19 19:45 36.0 20 136/72 (93) 98 Room Air 06/19/19 19:45 Room Air 06/19/19 19:45 36.7 71 18 119/67 (84) 100 Room Air 06/19/19 19:30 Room Air 06/19/19 19:30 20 137/70 (92) 98 Room Air 06/19/19 19:20 20 128/71 (90) 99 Room Air 06/19/19 19:15 Room Air 06/19/19 19:10 20 127/127 (127) 65 Room Air 06/19/19 19:00 20 128/71 (90) 99 Room Air 06/19/19 19:00 Room Air 06/19/19 18:55 36.0 20 116/70 (85) 99 Room Air 06/19/19 18:55 Room Air 06/19/19 17:50 87 18 99 Room Air 06/19/19 17:40 37.7 86 18 99 Room Air 06/19/19 17:35 80 18 140/62 (88) Room Air 06/19/19 17:20 80 18 143/67 (92) Room Air 06/19/19 17:05 88 18 143/68 (93) Room Air 06/19/19 16:55 92 18 144/67 (92) Room Air 06/19/19 16:35 83 18 178/91 (120) Room Air 06/19/19 16:20 76 18 146/81 (102) Room Air 06/19/19 16:07 90 154/71 (98) 06/19/19 16:05 88 18 153/68 (96) Room Air 06/19/19 15:50 84 18 172/78 (109) Room Air 06/19/19 15:45 82 18 175/83 (113) Room Air 06/19/19 15:35 83 18 171/80 (110) Room Air 06/19/19 15:20 78 18 174/91 (118) Room Air 06/19/19 15:05 82 18 181/89 (119) Room Air 06/19/19 14:50 78 18 145/71 (95) Room Air 06/19/19 14:35 88 18 145/71 (95) Room Air 06/19/19 14:20 80 18 151/84 (106) Room Air 06/19/19 14:05 79 18 145/86 (105) Room Air 06/19/19 13:50 85 18 144/79 (100) Room Air 06/19/19 13:35 93 18 141/83 (102) Room Air 06/19/19 13:20 18 Room Air 06/19/19 13:05 91 18 141/75 (97) Room Air 06/19/19 12:50 90 18 135/88 (104) Room Air 06/19/19 12:35 18 Room Air 06/19/19 12:20 18 Room Air 06/19/19 12:14 36.3 06/19/19 12:05 76 18 132/59 (83) Room Air 06/19/19 11:50 75 18 126/58 (80) Room Air 06/19/19 11:35 82 18 140/70 (93) Room Air 06/19/19 11:20 81 18 158/73 (101) Room Air 06/19/19 11:00 82 18 146/74 (98) Room Air 06/19/19 10:45 81 18 147/75 (99) Room Air 06/19/19 10:30 76 18 144/81 (102) Room Air 06/19/19 10:00 81 18 148/79 (102) Room Air 06/19/19 09:00 77 18 140/69 (92) Room Air 06/19/19 08:00 76 18 142/75 (97) Room Air I & O 06/20/19 07:00 Intake Total 4057.4 ml Output Total 500 ml Balance 3557.4 ml Vital signs are stable. Patient is afebrile. Blood pressures are normalizing. The abdomen is benign. Extremities show no clubbing or cyanosis. There is no Homans sign. Assessment and plan postoperative day number 1 status post primary delivery at 37+ weeks gestation. Patient is doing well and will have routine convalescence care JIM KAUR MD June 20, 2019 07:48
[2019-06-20] MEDS ORDERED: DCS100C PO (07:49)
[2019-06-20] MEDS ORDERED: OXYC1TAB12 PO (07:49)
[2019-06-20] MEDS ORDERED: IBUP-1780 PO (07:49)
--- NOTE | 2019-06-20 07:50 | Discharge Inst-Surgical ---
Discharge Inst-Surgical Depart Medication/Instructions New, Converted or Re-Newed RX: RX on Chart Consults/Follow Up Patient Instructions: As directed Orders & Referrals Follow Up Appt: RTC 1 week for incision check with Dr. Dixon Call to make follow up appt. for patient in [address] Mcgraw Wound Care: Remove carl, apply benzoin and steri strips. Activity Per routine post instructions. Please call in RX to patient pharmacy. Diet as tolerated Patient may shower or tub bathe as desired. Continue home meds Activity Activity as Tolerated: No Diet Discharge Diet: No Restrictions JIM DIXON MD June 20, 2019 07:50
[2019-06-20 08:00] VITALS: BP 147/83
[2019-06-20] MEDS: DOCUSATE SODIUM 100 MG (COLACE) CAP PO SCH ×2 (08:15→20:27)
[2019-06-20] MEDS: NIFEdipine ER 60 MG (PROCARDIA XL) TAB PO SCH (08:15)
[2019-06-20] MEDS ORDERED: IBUPROFEN 800 MG (MOTRIN) TAB PO ONE (11:45)
[2019-06-20 12:34] VITALS: BP 130/77
[2019-06-20] MEDS: IBUPROFEN 800 MG (MOTRIN) TAB PO SCH ×2 (12:36→18:14)
--- NOTE | 2019-06-20 14:10 | Anesthesia-Regional Post-Op ---
Regional Patient Condition Mental Status: Alert, Oriented x3 Circulation: Same as Pre-Op Headache: Absent Sensation: Full Recovery Motor Block: Absent Post Op Complications Complications None Follow Up Care/Instructions Patient Instructions None needed. Anesthesia/Patient Condition Patient is doing well, no complaints, stable vital signs, no apparent adverse anesthesia problems. No complications reported per nursing. BEATRICE WALTERS CRNA June 20, 2019 14:10
--- NOTE | 2019-06-20 15:40 | NUR ---
This nurse assuming care from Mendoza Dunbar RN. 1815 Pain rating 3 - no complaints.
[2019-06-20 16:00] VITALS: BP 130/78
[2019-06-20 20:27] VITALS: BP 133/74
[2019-06-21 02:30] VITALS: BP 137/84
[2019-06-21] MEDS: IBUPROFEN 800 MG (MOTRIN) TAB PO SCH ×3 (02:30→16:14)
[2019-06-21] MEDS: oxyCODONE/APAP 10/325MG (PERCOCET 10) TABLET PO PRN ×2 (02:30→09:59)
--- NOTE | 2019-06-21 07:57 | Progress Note ---
Standard Progress Note Progress Notes/Assess & Plan Date Seen by a Provider: June 21, 2019 Time Seen by a Provider: 07:56 Progress/Assessment & Plan This patient is without complaint. She is ambulating, voiding, tolerating oral intake well and has good pain control. Patient denies chest pain, denies shortness of breath, denies nausea or vomiting, and denies headache. Vital Signs Date Time Temp Pulse Resp B/P (MAP) Pulse Ox O2 Delivery O2 Flow Rate FiO2 06/20/19 03:30 37.0 91 18 128/79 (95) 98 Room Air 06/20/19 00:21 36.8 82 18 138/74 (95) 98 Room Air 06/19/19 19:45 36.0 20 136/72 (93) 98 Room Air 06/19/19 19:45 Room Air 06/19/19 19:45 36.7 71 18 119/67 (84) 100 Room Air 06/19/19 19:30 Room Air 06/19/19 19:30 20 137/70 (92) 98 Room Air 06/19/19 19:20 20 128/71 (90) 99 Room Air 06/19/19 19:15 Room Air 06/19/19 19:10 20 127/127 (127) 65 Room Air 06/19/19 19:00 20 128/71 (90) 99 Room Air 06/19/19 19:00 Room Air 06/19/19 18:55 36.0 20 116/70 (85) 99 Room Air 06/19/19 18:55 Room Air 06/19/19 17:50 87 18 99 Room Air 06/19/19 17:40 37.7 86 18 99 Room Air 06/19/19 17:35 80 18 140/62 (88) Room Air 06/19/19 17:20 80 18 143/67 (92) Room Air 06/19/19 17:05 88 18 143/68 (93) Room Air 06/19/19 16:55 92 18 144/67 (92) Room Air 06/19/19 16:35 83 18 178/91 (120) Room Air 06/19/19 16:20 76 18 146/81 (102) Room Air 06/19/19 16:07 90 154/71 (98) 06/19/19 16:05 88 18 153/68 (96) Room Air 06/19/19 15:50 84 18 172/78 (109) Room Air 06/19/19 15:45 82 18 175/83 (113) Room Air 06/19/19 15:35 83 18 171/80 (110) Room Air 06/19/19 15:20 78 18 174/91 (118) Room Air 06/19/19 15:05 82 18 181/89 (119) Room Air 06/19/19 14:50 78 18 145/71 (95) Room Air 06/19/19 14:35 88 18 145/71 (95) Room Air 06/19/19 14:20 80 18 151/84 (106) Room Air 06/19/19 14:05 79 18 145/86 (105) Room Air 06/19/19 13:50 85 18 144/79 (100) Room Air 06/19/19 13:35 93 18 141/83 (102) Room Air 06/19/19 13:20 18 Room Air 06/19/19 13:05 91 18 141/75 (97) Room Air 06/19/19 12:50 90 18 135/88 (104) Room Air 06/19/19 12:35 18 Room Air 06/19/19 12:20 18 Room Air 06/19/19 12:14 36.3 06/19/19 12:05 76 18 132/59 (83) Room Air 06/19/19 11:50 75 18 126/58 (80) Room Air 06/19/19 11:35 82 18 140/70 (93) Room Air 06/19/19 11:20 81 18 158/73 (101) Room Air 06/19/19 11:00 82 18 146/74 (98) Room Air 06/19/19 10:45 81 18 147/75 (99) Room Air 06/19/19 10:30 76 18 144/81 (102) Room Air 06/19/19 10:00 81 18 148/79 (102) Room Air 06/19/19 09:00 77 18 140/69 (92) Room Air 06/19/19 08:00 76 18 142/75 (97) Room Air I & O 06/20/19 07:00 Intake Total 4057.4 ml Output Total 500 ml Balance 3557.4 ml Vital signs are stable. Patient is afebrile. Blood pressures are normalizing. The abdomen is benign. Extremities show no clubbing or cyanosis. There is no Homans sign. Assessment and plan postoperative day number 1 status post primary delivery at 37+ weeks gestation. Patient is doing well and will have routine convalescence care June 21, 2019 Patient without complaint. She is ambulating, voiding, tolerating oral intake well has good pain control. Vital Signs Date Time Temp Pulse Resp B/P (MAP) Pulse Ox O2 Delivery O2 Flow Rate FiO2 06/21/19 02:30 36.5 89 18 137/84 (101) 97 Room Air 06/20/19 20:27 36.3 94 16 133/74 (93) 97 Room Air 06/20/19 16:00 36.8 101 16 130/78 (95) Room Air 06/20/19 12:34 36.8 96 18 130/77 (94) 95 Room Air 06/20/19 08:00 36.9 89 18 147/83 (104) 97 Room Air I & O 06/21/19 07:00 Intake Total 600 ml Balance 600 ml Vital signs are stable. Patient is afebrile. Blood pressures are normalizing. The abdomen is benign. Extremities show no clubbing or cyanosis. There is no Homans sign. Assessment and plan postoperative day number 2 doing well. Plan is for discharge home with follow-up in clinic Final Diagnosis 37+ week primary delivery JIM KAUR MD June 21, 2019 07:57
--- NOTE | 2019-06-21 08:00 | NUR ---
here to see pt. dismissal orders received.
[2019-06-21] MEDS: ACETAMINOPHEN 500 MG TAB (TYLENOL) PO PRN (09:29)
[2019-06-21 09:30] VITALS: BP 135/83
[2019-06-21] MEDS: DOCUSATE SODIUM 100 MG (COLACE) CAP PO SCH (09:30)
[2019-06-21] MEDS: NIFEdipine ER 60 MG (PROCARDIA XL) TAB PO SCH (09:30)
--- NOTE | 2019-06-21 09:30 | NUR ---
assessment completed, see interventions for further. POC reviewed with pt and s/o. pt pumping currently, will return when notified to assess VS.
--- NOTE | 2019-06-21 16:33 | NUR ---
[place] to lower transverse incision removed by this nurse, steristrips applied to incision. Incision remains intact, no bleeding or oozing noted. Incision care discussed with patient. Entire discharge packet discussed with patient and her s/o. patient positively engaging in discharge discussion and education. Follow up appointments made for patient. patient given follow up appointment cards. after going over discharge paper work patient denies having any further questions. Patient is discharged but is rooming in with baby who is still a patient.
== END 2019-06-21 16:33 | disposition home or self-care (01) | DRG 788 ==
LOC: LDRP 18:27
PROVIDERS: ADMIT Family Medicine; ATTEND Family Medicine
PROC: 10D00Z1 Extraction of Products of Conception, Low, Open Approach (ICD-10-PCS; principal; 2019-06-19 17:52)
DX: O10.92 Unspecified pre-existing hypertension complicating childbirth (principal); O99.824 Streptococcus B carrier state complicating childbirth; O62.2 Other uterine inertia; Z37.0 Single live birth; Z3A.37 37 weeks gestation of pregnancy
CPT/HCPCS: 36415; 80053; 82570; 83615; 84156; 84550; 85025; 86780; 86850; 86900; 86901; 88307; 94664

== ENCOUNTER 2019-09-11 05:35 | Outpatient (RCR) | payer OTHER, BC ==
[~2019-09-11] VITALS: Ht 175.3 cm; Wt 146.8 kg
[~2019-09-11 05:35] MED LIST changes: +DCS100C PO; +IBUP-1780 PO; +LABE100T6 PO; +NIFE10CA PO; +OXYC1TAB12 PO; +PREN-53 PO
[2019-09-11] MEDS ORDERED: CITA40TA19 PO (13:58)
== END 2019-09-11 14:01 | disposition home or self-care (01) ==
LOC: PREOP 05:35
PROVIDERS: ATTEND Surgery
DX: Z01.818 Encounter for other preprocedural examination (principal)

== ENCOUNTER 2019-09-18 06:52 | Day surgery (SDC) | payer OTHER, BC ==
[2019-09-18] VITALS (11 sets, daily range): BP systolic 122–142; BP diastolic 65–91
[~2019-09-18] VITALS: Ht 175.3 cm; Wt 146.8 kg
[~2019-09-18 06:52] MED LIST changes: +CITA40TA19 PO
--- OUTSIDE RECORDS SUMMARY | 2019-09-18 07:01 | XMS REPORT | Continuity of Care Document ---
Author Organization Unknown Address Unknown Phone Unavailable Allergies Active Description Code Type Severity Reaction Onset Reported/Identified Relationship to Patient Clinical Status Yes No Known Drug Allergies [id number] Drug Allergy Unknown N/A 01/09/2019 Medications There is no data. Problems Date Dx Coded Attending Type Code Diagnosis Diagnosed By 01/05/1400 BARB DOLAN DO, Ot Z01.8 18 ENCOUNTER FOR OTHER PREPROCEDURAL EXAMIN 01/09/2019 DAMIAN ZELAYA MD Ot K52. 9 [...] AND EXPSR TO ENVIRON TOBACCO SMO 01/14/2019 NATHALIE BAH, DAMIAN Rodriguez Ot Z87.891 PERSONAL HISTORY OF NICOTINE DEPENDENCE [...] MD Ot Z3A.32 32 WEEKS GESTATION OF 05/28/2019 DEENA ARVIZU MD Ot O16 .9 UNSPECIFIED MATERNAL HYPERTENSION, UNSPE 05/28/2019 DEENA ARVIZU MD Ot Z3A.34 34 WEEKS GESTATION OF 05/29/2019 DEENA ARVIZU MD Ot O26.899 OTH RELATED CONDITIONS, UNSPEC 05/29/2019 DEENA ARVIZU MD Ot Z3A.00 WEEKS OF GESTATION OF NOT SPEC 05/30/2019 DEENA ARVIZU MD Ot O16 .9 UNSPECIFIED MATERNAL HYPERTENSION, UNSPE 05/30/2019 DEENA ARVIZU MD Ot Z3A.34 34 WEEKS GESTATION OF 05/31/2019 DEENA ARVIZU MD Ot O26.899 OTSabiha RELATED CONDITIONS, UNSPEC 05/31/2019 DEENA ARVIZU MD Ot Z3A.00 WEEKS OF GESTATION OF NOT SPEC 06/04/2019 DEENA ARVIZU MD Ot O26.899 OTH RELATED CONDITIONS, UNSPEC 06/04/2019 DEENA ARVIZU MD Ot Z3A.00 WEEKS OF GESTATION OF NOT SPEC 06/21/2019 DEENA ARVIZU MD Ot O10.92 UNSP PRE-EXISTING HYPERTENSION COMPLICAT 06/21/2019 DEENA ARVIZU MD Ot O62 .2 OTHER UTERINE INERTIA 06/21/2019 DEENA ARVIZU MD Ot O99.824 STREPTOCOCCUS B CARRIER STATE COMPLICATI 06/21/2019 DEENA ARVIZU MD, Ot Z37 .0 SINGLE LIVE 06/21/2019 DEENA ARVIZU MD, Ot Z3A.37 37 WEEKS GESTATION OF Procedures Code Description Performed By Per rakesh On [id number] EX TRACTION OF PRODUCTS OF CONCEPTION, LO 06/19/2019 Results Test Result Range ESTRADIOL - 04/16/18 [...] 7-25 CREATININE 0.72 mg/dL 0.50-1.10 eGFR NON-AFR. [place] 119 mL/min/1.73m2 > OR = 60 eGFR [...] NRG STATEMENT OF ADEQUACY: NRG INTERPRETATION/RESULT: NRG RETAIL PRESENTATION SPECIALIST: NRG HPV mRNA E6/E7, SUREPATH VIAL Not Detected NOT DETECTED REVIEW RETAIL PRESENTATION SPECIALIST: NRG COMMENT NRG URINE PROTEIN 24 HOUR [...] ragweed IgE antibody assay 156 U/L 125-220 [id number] - 05/28/19 09:10 [id number] SPECIMEN AVAILABLE NRG Urine protein/creatinine mass ratio - 11:40 Urine protein measurement (mass/volume) 9 mg/dL 6-12 Urine creatinine measurement (mass/volume) 71 mg/d L 30-125 Urine protein/creatinine mass ratio 0.13 NRG Blood CBC with ordered manual differenti al [...] % 12-44 Blood monocytes/100 leukocytes 3 % NRG Automated blood eosinophils/100 leukocytes 0 % 0-10 [...] NRG Manual blood metamyelocytes/100 leukocytes 1 % NR Comprehensive metabolic panel - 05/29/19 12:05 Serum [...] 7-25 CREATININE 0.58 mg/dL 0.50-1.10 eGFR NON-AFR. [place] 131 mL/min/1.73m2 > OR = 60 eGFR [...] 06/04/19 13:42 CREATININE, RANDOM URINE 59 mg/dL 5 PROTEIN/CREATININE RATIO 203 mg/g creat 21-161 PROTEIN, TOTAL, RANDOM UR 12 mg/dL -24 CBC - 06/04/19 13:42 WHITE BLOOD CELL COUNT 13.5 Thousand/uL 3.8-10.8 RED BLOOD CELL COUNT 4.00 Million/uL 3.8 0-5.10 HEMOGLOBIN 10.9 g/dL 11.7-15.5 HEMATOCRIT 33.3 % 35.0-45.0 MCV 83.3 fL 80.0-100.0 MCH 27.3 pg 27.0-33.0 MCHC 32.7 g/dL 32.0-36.0 RDW 13.8 % 11.0-15.0 PLATELET COUNT 290 Thousand/uL 140-400 MPV 11.1 fL 7.5-12.5 ABSOLUTE NEUTROPHILS 03399 cells/uL 1500 -7800 ABSOLUTE LYMPHOCYTES 2255 cells/uL [...] 06/11/19 11:56 CREATININE, RANDOM URINE 116 mg/dL 5 PROTEIN/CREATININE RATIO 190 mg/g creat 21-161 PROTEIN, TOTAL, RANDOM UR 22 mg/dL -24 CBC - 06/11/19 11:56 WHITE BLOOD CELL COUNT 15.3 Thousand/uL 3.8-10.8 RED BLOOD CELL COUNT 4.21 Million/uL 3.8 0-5.10 HEMOGLOBIN 11.4 g/dL 11.7-15.5 HEMATOCRIT 35.2 % 35.0-45.0 MCV 83.6 fL 80.0-100.0 MCH 27.1 pg 27.0-33.0 MCHC 32.4 g/dL 32.0-36.0 RDW 13.9 % 11.0-15.0 PLATELET COUNT 316 Thousand/uL 140-400 MPV 10.8 fL 7.5-12.5 ABSOLUTE NEUTROPHILS 75567 cells/uL 1500 -7800 ABSOLUTE LYMPHOCYTES 2509 cells/uL 850-3 900 ABSOLUTE MONOCYTES 673 cells/uL 200-950 ABSOLUTE EOSINOPHILS 46 cells/uL 15-500 ABSOLUTE BASOPHILS 31 cells/uL 0-200 NEUTROPHILS 78.7 % NRG LYMPHOCYTES 16.4 % NRG MONOCYTES 4.4 % NRG EOSINOPHILS 0.3 % NRG BASOPHILS 0.2 % NRG CULTURE, GROUP B STREP (VAGINAL) - 06/10 11:56 STREPTOCOCCUS, GROUP B CULTURE SEE NOTE NRG Urine protein/creatinine mass ratio - 19:00 Urine protein measurement (mass/volume) 24 mg/dL 6-12 Urine creatinine measurement (mass/volume) 149 mg/ dL 30-125 Urine protein/creatinine mass ratio 0.16 NRG Complete blood count (CBC) with automate [...] blood basophil count (count/volume) 0.0 10*3/uL 0.0-0.1 Blood type T Indirect antibody screen pa spenser - 06/18/19 19:30 WRISTBAND NUMBER [id number] NRG ABO+Rh group AP NRG Blood group antibody screen NEGATIVE NR G Comprehensive metabolic panel - 06/18/19 19:30 Serum or plasma sodium measurement (moles/volume) 137 mmol/L 135-145 Serum or plasma potassium measurement (moles/volume) 4.7 mmol/L 3.6-5.0 Serum or plasma chloride measurement (moles/volume) 106 mmol/L 98-107 Carbon dioxide 16 mmol/L 21-32 Serum or plasma anion gap determination (moles/volume) 15 mmol/L 5-14 Serum or plasma urea nitrogen measurement (mass/volume ) 8 mg/dL 7-18 Serum or plasma creatinine measurement (mass/volume) 0.73 mg/dL 0.60-1.30 Serum or plasma urea nitrogen/creatinine mass ratio 11 NRG Serum or plasma creatinine measurement w ith calculation of estimated glomerular filtration rate > NRG Serum or plasma glucose measurement (mass/volume) 116 mg/dL 70-105 Serum or plasma calcium measurement (mass/volume) 9.7 mg/dL 8.5-10.1 Serum or plasma total bilirubin measurement (mass/volu me) 0.1 mg/dL 0.1-1.0 Serum or plasma alkaline phosphatase brinda surement (enzymatic activity/volume) 105 U/L 40-136 Serum or plasma aspartate aminotransfera se measurement (enzymatic activity/volume) 15 U/L 5-34 Serum or plasma alanine aminotransferase measurement (enzymatic activity/volume) 7 U/L 0-55 Serum or plasma protein measurement (mass/volume) 7.0 g/dL 6.4-8.2 Serum or plasma albumin measurement (mass/volume) 3.2 g/dL 3.2-4.5 CALCIUM CORRECTED 10.3 mg/dL 8.5-10.1 Serum or plasma uric acid measurement (m ass/volume) - 06/18/19 19:30 Serum or plasma uric acid measurement (mass/volume) 6.0 mg/dL 2.6-7.2 Serum ragweed IgE antibody assay - 06/17 19:30 Serum ragweed IgE antibody assay 267 U/L 125-220 Serum reagin antibody assay (units/volum e) by RPR - 06/18/19 19:30 Serum reagin antibody assay (units/volume) by RPR Non-Reactive Non-Reactive Encounters ACCT No. Visit Date/Time Discharge Status Pt. Type Provider Facility Loc./Unit Complaint [id number] 09/06/2019 13:00:00 09/06/2019 23:59: 59 [facility] Outpatient NOLBERTO BAH, DEENA BOWMAN [address] [id number] 06/11/2019 11:00:00 Document Registration [id number] 06/04/2019 10:20:00 Document Registration [id number] 05/01/2019 11:20:00 Document Registration [id number] 04/11/2019 14:00:00 Document Registration [id number] 04/05/2019 15:00:00 Document Registration [id number] 03/13/2019 15:40:00 Document Registration [id number] 02/19/2019 13:20:00 Document Registration [id number] 01/22/2019 13:20:00 Document Registration [id number] 12/10/2018 09:00:00 Document Registration [id number] 11/20/2018 08:20:00 Document Registration [id number] 11/14/2018 13:20:00 Document Registration [id number] 11/02/2018 09:20:00 Document Registration [id number] 07/25/2018 09:00:00 Document Registration [id number] 04/25/2018 10:40:00 Document Registration [id number] 04/16/2018 08:20:00 Document Registration [id number] 09/11/2019 05:35:00 14:01:00 DIS Outpatient BARB DOLAN DO Via [facility] [address] PREOP CHOLELITHIASIS [id number] 06/18/2019 18:27:00 16:33:00 DIS Inpatient DEENA ARVIZU MD Via [facility] [address] LDRP INDUCTION [id number] 05/29/2019 10:55:00 13:05:00 DIS Outpatient [facility]EE[facility] BP [id number] 05/28/2019 08:39:00 13:15:00 DIS Outpatient DEENA ARVIZU MD [facility] HIGH BP [id number] 05/17/2019 10:30:00 13:23:00 DIS Outpatient DEENA ARVIZU MD Via [facility] HIGH BLOOD PRESSURE [id number] 01/09/2019 17:13:00 19:34:00 DIS Emergency DAMIAN ZELAYA MD Via [facility] [address] ER CONSTIPATION,VOMITING, FEVER [id number] 09/18/2019 08:00:00 P EN Preadmit [facility]
[2019-09-18] MEDS ORDERED: BUP/EPI 0.5% 1:200,000 (MARCAINE) 10ML VIAL IJ ONE (07:02)
[2019-09-18] MEDS ORDERED: IOPAMIDOL 61% 30 ML (ISOVUE 300) VIAL ONE (07:02)
[2019-09-18] MEDS ORDERED: ROCURONIUM 10 MG/ML 5 ML SYRINGE IV ONE (07:08)
[2019-09-18] MEDS ORDERED: ONDANSETRON 4 MG/2 ML (SDV) Z0FRAN ONE (07:08)
[2019-09-18] MEDS ORDERED: LIDOCAINE PF 2% 5 ML (XYLOCAINE) VIAL ONE (07:08)
[2019-09-18] MEDS ORDERED: proPOfol 200 MG/20 ML (DIPRIVAN) VIAL IV ONE (07:08)
[2019-09-18] MEDS ORDERED: fentaNYL INJECTION 100 MCG/2 ML AMP ONE (07:09)
[2019-09-18] MEDS ORDERED: MIDAZOLAM 2 MG/2 ML (VERSED) VIAL ONE (07:09)
[2019-09-18] MEDS ORDERED: SEVOFLURANE (ULTANE) 15 ML INHAL SOLN ONE ×6 (07:11→08:32)
[2019-09-18] MEDS ORDERED: LACTATED RINGERS 1,000 ML IV PRN (07:14)
[2019-09-18] MEDS ORDERED: ceFAZolin 2 GM IV Premixed 50 ML IV ONE (07:15)
--- NOTE | 2019-09-18 08:03 | Progress Note-Pre Operative ---
Pre-Operative Progress Note H&P Reviewed The H&P was reviewed, patient examined and no changes noted. Time Seen by Provider: 07:56 Date H&P Reviewed: Sep 18, 2019 Time H&P Reviewed: 07:57 Pre-Operative Diagnosis: Cholelithiasis/Cholecystitis BARB DOLAN DO Sep 18, 2019 08:03
[2019-09-18] MEDS ORDERED: GLYCOPYRROLATE 0.2 MG/ML (ROBINUL) 2 ML VIAL ONE (08:32)
[2019-09-18] MEDS ORDERED: NEOSTIGMINE 3 MG/3 ML VIAL ONE (08:33)
--- NOTE | 2019-09-18 08:50 | Progress Note-Post Operative ---
Post-Operative Progess Note Surgeon (s)/Belt Tender (s) Surgeon BARB DOLAN DO Belt Tender: Mitchell Pre-Operative Diagnosis Cholelithiasis/Cholecystitis Post-Operative Diagnosis same Procedure & Operative Findings Date of Procedure 09/18/19 Procedure Performed/Findings PROCEDURE: Laparoscopic cholecystectomy with intraoperative cholangiogram. COMPLICATIONS: None. PROCEDURE: The patient was taken to the operating suite and was prepped and draped in sterile fashion. A surgical pause was performed. Just superior to the umbilicus, a 12 mm incision was made. Dissection was taken down to the fascia, which was then scored and grasped with a Jessica and the abdomen was then entered. A 0 Vicryl suture was placed in a [id number] fashion and a Samuels trocar was placed and secured. Pneumoperitoneum was achieved. A 5mm trochar place in the subxyphoid and 2 in the right upper quadrant. The gallbladder was then grasped and elevated. The cystic duct, and cystic artery were then dissected out. Clip was placed on the distal portion of the cystic duct which was then partially transected. An arrow catheter was inserted into the duct. The cholangiogram was then performed. No filing defects and contrast made its way into the duodenum. Catheter removed. Clips were placed on proximal portion of the cystic duct and then the duct was then transected. Clips were placed along the proximal and distal portion of the cystic artery which was then transected. Hook cautery was used to dissect the gallbladder from the gallbladder fossa achieving hemostasis. The gallbladder was placed in an Endobag and removed through the 12 mm trocar site. The abdomen was then reinspected. Copious amounts of irrigation were used to irrigate the abdomen and there were no signs of active bleeding. Hemostasis had been achieved. The 12 mm fascial defect was then closed with 0 Vicryl suture that had been placed in a [id number] fashion. The abdomen was then desufflated, the trocars were removed. The abdomen was then washed and dried. The skin was then closed using 4-0 Monocryl in a subcuticular fashion. The abdomen was washed and dried and Skin Affix was place over incisions. Patient tolerated the procedure well without any complications and was taken to the recovery room in stable condition. Anesthesia Type GET Estimated Blood Loss Estimated blood loss (mL): scant Specimens/Packing Specimens Removed GB and contents BARB DOLAN DO Sep 18, 2019 08:50
[2019-09-18] MEDS ORDERED: ACHYD1T PO (08:52)
--- NOTE | 2019-09-18 08:53 | Discharge Inst-Surgical ---
Discharge Inst-Surgical Depart Medication/Instructions New, Converted or Re-Newed RX: RX Given to Pt/Family Patient Instructions Follow up Appt: Make appointment for 1 week. [phone] Instructions: No lifting greater than 20 pounds. No strenuous activity. May shower in 24 hours, no tub bath or soaking. Use incentive spirometer at home as directed. No Smoking Skin/Wound Care: May remove bandages in am. You need to leave the Dermabond on incision it will fall off on it's own. Symptoms to Report: Appetite Changes, Extremity Discoloration, Numbness/Tingling, Swelling Increased, Bleeding Excessive, Eyesight Changes, Pain Increased, Urine Color Change, Constipation(Persistent), Fever over 101 degree F, Pain/Pressure in chest, Urinating Difficulty, Cough Up/Vomit Blood, Heart Beat Irreg/Pounding, Pain/Pressure in jaw, Cramps in feet or legs, Lightheadedness, Pain/Pressure in shoulder, Diarrhea(Persistent), Memory Changes Suddenly, Questions/Concerns, Weight gain consecutive days, Dizziness/Fainting, Nausea/Vomiting, Shortness of Breath, Weight gain over 2 pounds If questions or concerns contact your physician Or seek help at emergency department. Activity Activity as Tolerated: Yes Activity Instructions: Avoid Stress to Incision Driving Instructions: No Driving/Refer to Diet Discharge Diet: Avoid Fatty Foods, Low Fat/Low Cholesterol Diet After 24 Hours: Clear Liquid if Nauseous If Any Problems/Questions/Issu: Contact Your Physician, Go to Emergency Room Skin/Wound Care Infection Signs and Symptoms: Increased Redness, Foul Odor of Wound, Increased Drainage, Skin Itchy or Has a Rash, Increased Swelling, Temperature Above 101 F Wound Care Comment: Heating pad to shoulder or neck tonight for pain Bathing Instructions: Shower Ice Pack: Ice On and Off Site (at incisions as needed for pain) BARB DOLAN DO Sep 18, 2019 08:53
[2019-09-18] MEDS ORDERED: MEPERIDINE (DEMEROL) INJ 50 MG/ML IVP ONE (09:15)
[2019-09-18] MEDS ORDERED: fentaNYL INJECTION 100 MCG/2 ML AMP IVP ONE (09:15)
[2019-09-18] MEDS ORDERED: PROMETHAZINE INJ 25 MG/ML (PHENERGAN) AMP IVP ONE (09:15)
--- NOTE | 2019-09-18 09:20 | Diagnostic Imaging Report ---
INDICATION: Laparoscopic cholecystectomy with cholangiogram. COMPARISON: None Total fluoroscopy time: 14 seconds Total number of fluoroscopic images saved: 38 FINDINGS: Multiple intraoperative image intensifier and digital subtraction images of the right upper abdominal quadrant were obtained during intraoperative cholangiogram. Images provided show contrast filling the intra and extrahepatic biliary ductal systems. There is small amount of extravasation of contrast. There is normal migration of contrast into the small bowel. No distinct intraluminal filling defects are seen. Please note, however, that interpreting radiologist was not present during the procedure. IMPRESSION: 1. Fluoroscopic guidance provided during intraoperative cholangiogram as above. Dictated by: Dictated on workstation # [id number]
[2019-09-18] MEDS: ONDANSETRON 4 MG/2 ML (SDV) Z0FRAN IVP PRN ×2 (09:28→09:38)
--- NOTE | 2019-09-18 10:00 | NUR ---
TO AMB SURG FROM PAR PER CART. ALERT, C/O NAUSEA, RATES MID UPPER ABD PAIN 4. SKIN AFFIX INTACT TO X4 LAP ABD SURGICAL SITES, ICE PACK ON.
[2019-09-18] MEDS: PROMETHAZINE INJ 25 MG/ML (PHENERGAN) AMP IVP ONE (10:33)
--- NOTE | 2019-09-18 10:33 | NUR ---
ORDER RECEIVED AND PHENERGAN 12.5 MG GIVEN IVP FOR CONTINUED C/O NAUSEA.
[2019-09-18] MEDS ORDERED: HYDROcodone/APAP 10 MG/325 MG (LORTAB) TAB PO ONE (11:00)
--- NOTE | 2019-09-18 11:04 | NUR ---
HAS BEEN UP TO BR TO VOID, GAIT STEADY. REPORTS NAUSEA "IS GETTING BETTER". LORTAB 10/325 MG, ONE TAB, GIVEN PO.
--- NOTE | 2019-09-18 12:50 | NUR ---
HAS BEEN RESTING QUIETLY IN BED, AWAKE NOW AND HAS BEEN TAKING PO FLUIDS WITHOUT PROBLEM. RATES ABD/SURGICAL SITE PAIN 3. STATES SHE IS READY FOR DISMISSAL.
--- NOTE | 2019-09-19 07:14 | Anesthesia-General Post-Op ---
General Patient Condition Mental Status/LOC: Same as Preop Cardiovascular: Satisfactory Nausea/Vomiting: Absent Respiratory: Satisfactory Pain: Controlled Complications: Absent Post Op Complications Complications None Follow Up Care/Instructions Patient Instructions None needed. Anesthesia/Patient Condition Patient Condition Patient is doing well, no complaints, stable vital signs, no apparent adverse anesthesia problems. No complications reported per nursing. TORY BORRERO CRNA Sep 19, 2019 07:14
== END 2019-09-18 12:50 | disposition home or self-care (01) ==
LOC: SDC 06:52
PROVIDERS: ATTEND Surgery
DX: K80.10 Calculus of gallbladder with chronic cholecystitis without obstruction (principal); F41.9 Anxiety disorder, unspecified; F32.9 Major depressive disorder, single episode, unspecified; I10 Essential (primary) hypertension; F17.210 Nicotine dependence, cigarettes, uncomplicated; E66.01 Morbid (severe) obesity due to excess calories; Z68.42 Body mass index [BMI] 45.0-49.9, adult; Z79.899 Other long term (current) drug therapy; Z80.1 Family history of malignant neoplasm of trachea, bronchus and lung
CPT/HCPCS: 76000; 84703; 87081; 88304